=== PATIENT | female | born 1990 | race Caucasian/White ===

== ENCOUNTER 2019-06-01 17:35 | Emergency (ER) | payer OTHER, MEDICAID, SELFPAY ==
[2019-06-01 17:36] VITALS: BP 138/87; PULSE 101; RESP 18; TEMP 36.8; O2SAT 100; BMI 20.3
--- NOTE | 2019-06-01 17:47 | ED.DCSUM_ITS ---
- ER Visit Summary Date of Service: 06/01/19 Chief Complaint: Left knee pain History of Present Illness: The patient is a 29 F who complains of left knee pain. It started 4 days ago. She was working and was standing on her feet for more than 11 hours when the pain started. Denies any specific injury. The pain is on the lateral portion of her left knee. Is worse with walking. She saw orthopedic in [place] last year for torn meniscus which healed on its own. She cannot take certain pain medications due to being on Celebrex for her Crohn's disease. She went to an urgent care earlier today and had negative x-rays. They did not give her any assistive devices or pain medications there. She has a Orth appointment with an orthopedic surgeon with the [facility] in over a month Physical Examination: Vital signs reviewed. Left knee exam reveals tenderness on the lateral joint line. There is mild swelling. She has decreased range of motion secondary to pain. She does have pain with valgus and varus stress. There is a mild amount of swelling Test Results: None performed here today Emergency Department Course and Treatment: Reviewed the patient's note from the urgent care. They performed x-rays which were negative. I will give her analgesia here. I will give her a knee immobilizer and crutches. I will give her follow-up with orthopedics here. Treatment Plan: [] Disposition: Discharge Impression: Left knee pain This note was generated with [employer] dictation software. It may contain incorrect words, spelling, and punctuation that were not noted in review of the chart prior to signing ED Disposition - Plan for ED Patient: Referrals: Ruben Burciaga MD [Primary Care Provider] -
--- NOTE | 2019-06-01 17:50 | ED.DEP ---
ED Disposition - Plan for ED Patient: Disposition: Home or Assisted Living Instructions: KNEE PAIN, Uncertain Cause Prescriptions: Oxycodone [Oxyir] 5 mg PO Q6H PRN PRN 3 Days #10 tab PRN Reason: Pain Prescription Printed Referrals: Ruben Burciaga MD [Primary Care Provider] -
== END 2019-06-01 18:15 | disposition home or self-care (01) ==
LOC: ED 18:09
PROVIDERS: Emergency Provider Emergency Medicine; Family Provider Internal Medicine; PCP Internal Medicine
DX: M25.562 Pain in left knee (principal); K50.90 Crohn's disease, unspecified, without complications; Z79.899 Other long term (current) drug therapy
CPT/HCPCS: 99284

== ENCOUNTER 2019-10-05 18:35 | Emergency (ER) | payer OTHER, MEDICAID, SELFPAY ==
[2019-10-05 18:37] VITALS: BP 144/93; PULSE 108; RESP 18; TEMP 36.4; O2SAT 100; BMI 21.8
--- NOTE | 2019-10-05 18:56 | RAD_ITS ---
STUDY: X-RAY - THORACIC SPINE REASON FOR EXAM: Female, 29 years old. Back pain TECHNIQUE: 3 view(s) of the thoracic spine were obtained. COMPARISON: None. FINDINGS: Normal kyphosis of the thoracic spine. There is no substantial scoliosis. Normal thoracic vertebrae and endplates. Normal disc space heights. Right chest wall Mediport The soft tissue structures are unremarkable. RAD/Thoracic Spine 3 Views IMPRESSION: Normal x-ray examination of the thoracic spine. Electronically Signed: Benjamin Buchanan DO at 19:50 EST Tel , Service support ,
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
[2019-10-05 22:22] VITALS: BP 121/78; PULSE 69; RESP 16; O2SAT 99
== END 2019-10-05 22:22 | disposition home or self-care (01) ==
PROVIDERS: Emergency Provider Emergency Medicine; Family Provider Internal Medicine; PCP Internal Medicine
DX: S16.1XXA Strain of muscle, fascia and tendon at neck level, initial encounter (principal); S29.012A Strain of muscle and tendon of back wall of thorax, initial encounter; K50.90 Crohn's disease, unspecified, without complications; D68.0 Von Willebrand disease; Z79.899 Other long term (current) drug therapy; V43.52XA Car driver injured in collision with other type car in traffic accident, initial encounter; Y93.I9 Activity, other involving external motion; Y92.410 Unspecified street and highway as the place of occurrence of the external cause; Y99.8 Other external cause status
CPT/HCPCS: 72040; 72072; 99282

== ENCOUNTER → 2019-10-10 14:35 | Outpatient (CLI) | payer OTHER, MEDICAID, SELFPAY ==
[2019-10-05 18:37] VITALS: BMI 21.8
[2019-10-10] MEDS: 0.9% Normal Saline 1,000 ML 999 ML IV (14:55)
[2019-10-10 14:58] VITALS: BP 123/85; PULSE 121; RESP 16; TEMP 36.8; O2SAT 99; BMI 20.9
== END ==
PROVIDERS: Family Provider Internal Medicine; PCP Internal Medicine; Referring Provider Nurse Practitioner; Visit Provider Nurse Practitioner
DX: E86.0 Dehydration (principal)
CPT/HCPCS: 96360; J7030; A4216

== ENCOUNTER 2021-10-10 14:39 | Inpatient (IN) | payer OTHER, SELFPAY ==
[2021-10-10 14:39] VITALS: BP 141/87; PULSE 137; RESP 16; TEMP 36.4; O2SAT 97; BMI 25.4
--- NOTE | 2021-10-10 16:47 | CT_ITS ---
INDICATION: Abdominal pain -- IV PO Contrast EXAMINATION: CT Abdomen And Pelvis W/ Contrast Injection TECHNIQUE: Helically acquired images were obtained of the abdomen and pelvis after IV contrast. A radiation dose optimization technique was used for this scan. IV Contrast dosage and agent: Oral and amp; IV Gastrografin and amp; 100mL Isovue-300 Oral contrast: yes. COMPARISON: None. FINDINGS: Visualized lung bases: Unremarkable Liver: Unremarkable Gallbladder: Surgically absent. 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 Lymphadenopathy: None Peritoneum: No ascites. Bladder: Unremarkable Reproductive organs: Multilocular rim-enhancing cystic structure in the left adnexa measuring approximately 5.3 x 6 x 6.4 cm. There is mild surrounding fat stranding. Bones/Soft tissues: No suspicious osseous or soft tissue lesions CT/Abdomen/Pelvis WITH Contrast IMPRESSION: 6.4 cm likely tubo-ovarian abscess on the left. 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 Electronically Signed: Rishabh Bronson MD at 19:07 EST Tel , Service support ,
[2021-10-10] MEDS: HYDROmorphone 1 MG/ML Syringe IV ×3 (17:01→22:12)
[2021-10-10] MEDS: 0.9% Normal Saline 1,000 ML 1000 ML IV (17:01)
[2021-10-10] MEDS: Ondansetron 4 MG/2 ML Vial IV (17:01)
[2021-10-10 17:07] LABS: Absolute Lymphocyte Count 1.38 X10^3/uL (0.83-4.51); Absolute Neutrophil Count 10.7 X10^3/uL (2.0-7.7); Basophil# 0.06 X10^3/uL; Basophil% 0.5 % (0-1); Eosinophil# 0.04 X10^3/uL; Eosinophils% 0.3 % (0-5); Hematocrit 39.4 % (37-47); Hemoglobin 13.4 g/dL (12.0-15.0); Lymphocyte # 1.38 X10^3/ul (0.83-4.51); Lymphocyte % 10.4 % (19-41); Mean Corpuscular Hgb 30.9 pg (27.0-32.0); Mean Platelet Vol. 10.2 fl (6.2-12.0); Monocyte# 1.05 X10^3/uL; Monocyte% 7.9 % (0-10); NRBC Flagged by Analyzer 0 % (0-5); Neutrophil # 10.65 X10^3/uL (2.7-7.7); Neutrophil % 80.2 % (47-70); Platelet Count 195 K/mm3 (150-450); RBC Distribution Width CV 12.2 % (11.6-14.6); RBC Distribution Width SD 40.9 fl (35.1-43.9); Red Blood Count 4.33 M/mm3 (4.2-5.4); White Blood Count 13.3 K/mm3 (4.4-11.0)
[2021-10-10 17:27] LABS: Color, Urine Yellow (Yellow); Glucose, Dipstick Normal (Normal); Ketone-Dipstick Negative (Negative); Leukocyte Esterase-Dipstick 500 /ul (Negative); Mucous, Urine 0 SEEN /hpf (<or=2+); Nitrite-Dipstick Negative (Negative); Occult Blood-Urine 250 /ul (Negative); Protein-Dipstick 15 mg/dl (Negative); Specific Gravity, Urine 1.025 (1.002-1.030); Urine Bilirubin Dipstick Negative (Negative); Urine Clarity Sl. Cloudy (Clear); Urine Urobilinogen Normal (Normal)
[2021-10-10 17:34] LABS: Bacteria RARE /hpf (None Seen); Red Blood Cells-Urine 0-5 SEEN /hpf (0-5); Squamous Epithelial Cells - UA 0-5 SEEN /hpf (5-10); White Blood Cells 25-50 SEEN /hpf (0-5)
[2021-10-10 17:38] LABS: ALB/GLOB Ratio 0.9 RATIO (0.9-2.4); AST(SGOT) 19 U/L (15-37); Alanine Aminotransfer ALT/SGPT 22 U/L (13-56); Albumin, Serum 3.4 g/dL (3.2-5.0); Alkaline Phosphatase 65 U/L (45-117); Anion Gap 8 (5-15); BUN 9 mg/dL (7-18); BUN/Creat Ratio 15.6 RATIO (10-20); Calcium,Total 8.7 mg/dL (8.5-10.1); Chloride 106 mmol/L (98-107); Creatinine, Serum 0.58 mg/dL (0.55-1.02); EST Glomerular Filtration Rate 128 mL/min (>60); Est Glom Filt Rate - Afr Amer 155 mL/min (>60); Estimated Creatinine Clearance 130.36 ml/min; Globulin 3.9 g/dL (2.2-4.2); Glucose 106 mg/dL (74-106); Lipase 94 U/L (73-393); Potassium 3.5 mmol/L (3.5-5.1); Protein, Total 7.3 g/dL (6.4-8.2); Sodium Level 136 mmol/L (136-145)
[2021-10-10 17:45] VITALS: BP 120/82; PULSE 110; RESP 16; O2SAT 100
--- NOTE | 2021-10-10 19:30 | ED.VIS.GI ---
HPI HPI - GI History of Present Illness Chief Complaint: Abd Pain Informant: patient Abdominal Pain/Flank Pain Onset: Today Context: Gradual Onset Timing: Continuous Quality: Sharp Location: Diffuse and - (Mainly in the periumbilical area) Worsened by: - (Walking, sitting) Relieved by: Nothing Nausea/Vomiting/Emesis GI Symptom: Positive for Nausea; Negative for Vomiting Diarrhea/Melena/Hematochezia GI Symptom: Positive for - (Decreased ostomy output); Negative for Diarrhea, Melena and Hematochezia Associated Symptoms Associated Symptoms: Negative for Dysuria, Frequency and Hematuria Narrative Narrative: Patient presents with abdominal pain that began yesterday. Patient states it is gradually getting worse. Patient states it is diffuse but mostly periumbilical. Patient states it is worsened by walking and by sitting up. Patient admits to nausea but denies any vomiting. Patient also admits to some decreased output in her ostomy bag. Patient denies any urinary complaints. Patient denies any melena or hematochezia. PFSH PFS Medical History Crohn's disease Fistula Von Willebrand disease, type I Home Medications amitriptyline 50 mg PO QHS 10/05/19 [History Last Taken Unknown] vedolizumab 300 mg IV QMONTH 10/05/19 [History Last Taken Unknown] Allergy/AdvReac Type Severity Reaction Status Date / Time banana Allergy Anaphylaxis Verified 10/10/21 14:42 bee venom protein (honey bee) Allergy Anaphylaxis Verified 10/10/21 14:42 fentanyl Allergy Anaphylaxis Verified 10/10/21 14:42 infliximab [From Remicade] Allergy Anaphylaxis Verified 10/10/21 14:42 morphine Allergy Anaphylaxis Verified 10/10/21 14:42 latex AdvReac Rash Verified 10/10/21 14:42 Surgical History History of cholecystectomy History of ileostomy History of total colectomy Social History Smoking Status: Never smoker ROS ROS ED Constitutional Constitutional ED: Denies chills or fever(s) Eyes Eyes: Denies blurry vision or change in vision ENT ENT ED: Denies rhinorrhea or sore throat Cardiovascular Cardiovascular: Denies chest pain or palpitations Respiratory/Chest Respiratory/Chest: Denies cough or dyspnea Gastrointestinal Gastrointestinal: Reports abdominal pain and nausea; Denies vomiting Genitourinary Genitourinary ED: Denies dysuria or hematuria Musculoskeletal Musculoskeletal: Denies back pain or neck pain Integumentary Denies abscess or rash Neurologic Neurologic: Denies headache(s) or weakness Allergic/Immunologic Allergic/Immunologic ED: Denies mouth swelling or urticaria EXAM Physical Exam Const Vital Signs: 10/10/21 14:39 10/10/21 17:45 10/10/21 20:02 Temperature 97.5 F L Temperature Source Temporal Pulse Rate 137 H 110 H 86 Respiratory Rate 16 16 18 Blood Pressure 141/87 H 120/82 H Blood Pressure Mean 105 94 Pulse Ox 97 100 95 Oxygen Delivery Method Room Air Room Air Room Air Positive well nourished and well developed General Appearance ED: well developed HEENT Reports moist mucous membranes Neck supple and no JVD Resp normal respiratory effort and clear to auscultation bilaterally Cardio regular rate and regular rhythm GI non-distended Palpation: soft and tender LLQ, RLQ and periumbilical; Negative for guarding or rebound tenderness present Extremity full ROM Neuro CN's II-XII intact bilaterally, moves all extremities and no sensory deficits noted Sensorium / Orientation: alert, oriented to person, oriented to place and oriented to time Motor Exam: strength 5/5 throughout Psych mental status grossly normal MDM MDM MDM Narrative Medical decision making narrative: Patient was given IV fluids and Dilaudid and Zofran here. CBC shows a leukocytosis of 13.3. Comprehensive metabolic profile showed an elevated bilirubin of 2.10 but was otherwise within normal limits. Urinalysis shows leukocyte esterase of 500 with 25-[address] scan of the abdomen pelvis was obtained. There is a multilocular rim-enhancing cystic structure in the left adnexa measuring 5.3 x 6 x 6.4 cm. There is some mild surrounding fat stranding. This could be a tubo-ovarian abscess versus possible abscess in a fistula. Patient was started on Rocephin, doxycycline, and Flagyl. Patient was given a repeat dose of Dilaudid. Case was discussed with Dr. Celestin from [facility]. She recommended contacting general surgery. Case was discussed with Dr. Calderon from general surgery. She thinks that if this is related to her Crohn's disease that she would need to be transferred back to [facility] where her other Crohn's surgeries were performed. Patient is agreeable to be transferred to [facility]. Case was discussed with colorectal surgery, Dr. Grajeda. He accepted the patient to be transferred there. Patient understood and was agreeable with the plan. All questions were answered. Lab Data Attestation: I reviewed the patient's lab results. Labs: Laboratory Results - last 24 hr 10/10/21 10/10/21 10/10/21 15:30 16:35 16:35 WBC 13.3 H RBC 4.33 Hgb 13.4 Hct 39.4 MCV 91.0 MCH 30.9 MCHC 34.0 RDW Std Deviation 40.9 RDW Coeff of Jaycee 12.2 Plt Count 195 MPV 10.2 Immature Gran % (Auto) 0.700 Neut % (Auto) 80.2 H Lymph % (Auto) 10.4 L Tillman % (Auto) 7.9 Eos % (Auto) 0.3 Baso % (Auto) 0.5 Absolute Neuts (auto) 10.7 H Absolute Lymphs (auto) 1.38 Nucleated RBC % 0 Sodium 136 Potassium 3.5 Chloride 106 Carbon Dioxide 22.0 Anion Gap 8 BUN 9 Creatinine 0.58 Estim Creat Clear Calc 130.36 Est GFR (MDRD) Af Amer 155 Est GFR (MDRD) Non-Af 128 BUN/Creatinine Ratio 15.6 Glucose 106 Calcium 8.7 Total Bilirubin 2.10 H AST 19 ALT 22 Alkaline Phosphatase 65 Total Protein 7.3 Albumin 3.4 Globulin 3.9 Albumin/Globulin Ratio 0.9 Lipase 94 Urine Color Yellow Urine Clarity Sl. Cloudy Urine pH 5.0 Ur Specific [place] 1.025 Urine Protein 15 H Urine Glucose (UA) Normal Urine Ketones Negative Urine Occult Blood 250 H Urine Nitrite Negative Urine Bilirubin Negative Urine Urobilinogen Normal Ur Leukocyte Esterase 500 H Urine RBC 0-5 SEEN Urine WBC 25-50 SEEN Ur Squamous Epith Cells 0-5 SEEN Urine Bacteria RARE Urine Mucus 0 SEEN Radiography Diagnostic Testing: Clinical Impression(s) from Imaging Studies Abdomen/Pelvis CT 10/10/21 16:47 IMPRESSION: 6.4 cm likely tubo-ovarian abscess on the left. 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 Electronically Signed: Rishabh Bronson MD at 19:07 EST Tel , Service support , Discharge Plan Triage Chief Complaint: Abd Pain ED Provider: Donaldo Foley Dx/Rx/DC Orders Clinical Impression: Abscess of female pelvis, Crohn's disease, Enterovaginal fistula Prescriptions: No Action amitriptyline 25 MG tablet 50 mg PO QHS RF: 0 vedolizumab 300 MG recon soln 300 mg IV QMONTH RF: 0 Primary Care Provider: Ruben Burciaga Referrals: Ruben Burciaga MD [Primary Care Provider] - Disposition Disposition: Acute Care Hospital Discharge Location: [facility]
[2021-10-10] MEDS: Ceftriaxone 1 GM/50 ML BAG IV (20:01)
[2021-10-10 20:02] VITALS: PULSE 86; RESP 18; O2SAT 95
[2021-10-10] MEDS: metroNIDAZOLE 500 MG/100 ML BAG 100 MG IV (20:38)
[2021-10-10 22:16] VITALS: BP 125/77; PULSE 88; RESP 18; O2SAT 99
[2021-10-11] VITALS (11 sets, daily range): BP systolic 99–127; BP diastolic 61–84; PULSE 86–110; RESP 15–18; TEMP 36.6–36.8; O2SAT 96–100; BMI 26.1
[2021-10-11] MEDS: Amitriptyline 25 MG Tablet 50 MG PO ×2 (00:26→21:39)
[2021-10-11] MEDS: Ondansetron 4 MG/2 ML Vial IV ×2 (01:00→12:08)
[2021-10-11] MEDS: HYDROmorphone 1 MG/ML Syringe IV ×5 (01:01→21:46)
--- NOTE | 2021-10-11 02:06 | ED.RN ---
CALLED [facility] AND THEY DO NOT HAVE A ETA ON A BED
[2021-10-11] MEDS: metroNIDAZOLE 500 MG/100 ML BAG 100 MG IV (02:29)
--- NOTE | 2021-10-11 07:45 | ED.RN ---
[facility], MOST LIKELY WILL NOT BE TODAY
[2021-10-11] MEDS: 0.9% Normal Saline 1,000 ML 1000 ML IV (09:09)
--- NOTE | 2021-10-11 10:20 | HP.PCM.HOS_ITS ---
HPI - General General Date of Admission: 10/11/21 Date of Service: 10/11/21 Chief Complaint: Abdominal pain HPI Narrative LAXMI SORIA, is a 31-year-old female with past medical history segment for Crohn's disease who presents with abdominal pain. Patient states she has had abdominal pain intermittently for the past 3 months. 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 She did not develop any 1 in February which has been followed closely by [facility]. She was scheduled to undergo MRI imaging on 11/06/2021 at the main campus of [facility] however she developed intense pain which resulted in patient being brought to the ED. In the emergency department CT of the abdomen and pelvis obtained demonstrated a 7.4 cm likely tubal ovarian abscess on the left and evidence of colectomy and r ight lower quadrant ileostomy. Call was placed to the [facility] to have patient transferred however bed was not available. General surgeon Dr. Calderon was contacted who requested for patient to be admitted to the medical service. Prior to Dr. Lutz being contacted [facility] has been contacted?Dr. Celestin who felt the findings on the CAT scan were not consistent with tubo-ovarian abscess [facility] Medical History Crohn's disease Fistula Von Willebrand disease, type I no medical history Home Medications amitriptyline 50 mg PO QHS 10/05/19 [History Last Taken Unknown] vedolizumab 300 mg IV QMONTH 10/05/19 [History Last Taken Unknown] Allergy/AdvReac Type Severity Reaction Status Date / Time banana Allergy Anaphylaxis Verified 10/10/21 14:42 bee venom protein (honey bee) Allergy Anaphylaxis Verified 10/10/21 14:42 fentanyl Allergy Anaphylaxis Verified 10/10/21 14:42 infliximab [From Remicade] Allergy Anaphylaxis Verified 10/10/21 14:42 morphine Allergy Anaphylaxis Verified 10/10/21 14:42 latex AdvReac Rash Verified 10/10/21 14:42 Family History Mother No problems noted. Surgical History History of cholecystectomy History of ileostomy History of total colectomy Social History Smoking Status: Never smoker ROS ROS Narrative GENERAL: denies fever, chills, HEENT: denies headache, sinus congestion, or drainage, dysphagia RESPIRATORY: denies cough, sputum production, shortness of breath, CARDIAC: denies chest pain, palpitations, orthopnea, PND GASTROINTESTINAL: abdominal pain, nausea, GENITOURINARY: denies dysuria, urgency, frequency, EXTREMITY: denies swelling MUSCULOSKELETAL: denies current joint pain or tenderness NEUROLOGIC: denies focal numbness, weakness, tingling HEMATOLOGIC: denies easy bruising and/or hemorrhage INTEGUMENT: denies rashes PSYCHIATRIC: denies suicidal or homicidal ideation Vital Signs Vital Signs Vital Signs: 10/10/21 14:39 10/10/21 17:45 10/10/21 20:02 Temperature 97.5 F L Temperature Source Temporal Pulse Rate 137 H 110 H 86 Respiratory Rate 16 16 18 Blood Pressure 141/87 H 120/82 H Blood Pressure Mean 105 94 Pulse Ox 97 100 95 Oxygen Delivery Method Room Air Room Air Room Air 10/10/21 22:16 10/11/21 01:06 10/11/21 03:06 Temperature Temperature Source Pulse Rate 88 103 H Respiratory Rate 18 18 18 Blood Pressure 125/77 H 107/69 Blood Pressure Mean 93 81 Pulse Ox 99 96 Oxygen Delivery Method Room Air Room Air 10/11/21 05:13 10/11/21 07:28 10/11/21 08:49 Temperature 98.3 F Temperature Source Oral Pulse Rate 88 105 H Respiratory Rate 18 16 16 Blood Pressure 99/61 Blood Pressure Mean 73 Pulse Ox 99 99 Oxygen Delivery Method Room Air Room Air Weight Weight: 71.713 kg Body Mass Index (BMI) 25.4 Results Lab / Micro Data Result Diagrams: 10/10/21 16:35 10/10/21 16:35 Labs: Laboratory Results - last 24 hr 10/10/21 15:30: Urine Color Yellow, Urine Clarity Sl. Cloudy, Urine pH 5.0, Ur Specific [place] 1.025, Urine Protein 15 H, Urine Glucose (UA) Normal, Urine Ketones Negative, Urine Occult Blood 250 H, Urine Nitrite Negative, Urine Bilirubin Negative, Urine Urobilinogen Normal, Ur Leukocyte Esterase 500 H, Urine RBC 0-5 SEEN, Urine WBC 25-50 SEEN, Ur Squamous Epith Cells 0-5 SEEN, Urine Bacteria RARE, Urine Mucus 0 SEEN 10/10/21 16:35: WBC 13.3 H, RBC 4.33, Hgb 13.4, Hct 39.4, MCV 91.0, MCH 30.9, MCHC 34.0, RDW Std Deviation 40.9, RDW Coeff of Jaycee 12.2, Plt Count 195, MPV 10.2, Immature Gran % (Auto) 0.700, Neut % (Auto) 80.2 H, Lymph % (Auto) 10.4 L, Cecil % (Auto) 7.9, Eos % (Auto) 0.3, Baso % (Auto) 0.5, Absolute Neuts (auto) 10.7 H, Absolute Lymphs (auto) 1.38, Nucleated RBC % 0 10/10/21 16:35: Sodium 136, Potassium 3.5, Chloride 106, Carbon Dioxide 22.0, Anion Gap 8, BUN 9, Creatinine 0.58, Estim Creat Clear Calc 130.36, Est GFR (MDRD) Af Amer 155, Est GFR (MDRD) Non-Af 128, BUN/Creatinine Ratio 15.6, Glucose 106, Calcium 8.7, Total Bilirubin 2.10 H, AST 19, ALT 22, Alkaline Phosphatase 65, Total Protein 7.3, Albumin 3.4, Globulin 3.9, Albumin/Globulin Ratio 0.9, Lipase 94 Radiology Impression Abdomen/Pelvis CT 10/10/21 16:47 IMPRESSION: 6.4 cm likely tubo-ovarian abscess on the left. 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 Electronically Signed: Rishabh Bronson MD at 19:07 EST Tel , Service support , Assessment & Plan Assessment/Plan (1) Abscess of female pelvis: (2) Crohn's disease: (3) Enterovaginal fistula: PLAN: Patient is a 31-year-old lady with history of Crohn's disease presented with lower abdominal 1. Pelvic abscess ?In a patient with Crohn's disease. Patient has been accepted for transfer to [facility] however bed currently not available. Patient has therefore been admitted to regular nursing floor started on broad-spectrum antibiotic therapy with Invanz with consultation placed to both general surgery as well as [facility] 2. Crohn's disease ?With previous colectomy and right lower quadrant ileostomy. Patient currently has complications including rectal vagina fistula. Patient is currently on monthly vedolizumab 3. Rectovaginal fistula ?Complication of patient's Crohn's disease currently being followed by surgery at [facility] 4. Status post colectomy and subsequent ileostomy ?Consult placed to osteotomy nurse for care 5. DVT prophylaxis ?Lovenox Charges/Coding Visit Charges Inpatient E&M: [id number] [facility] Hosp L3
--- NOTE | 2021-10-11 11:08 | PCS.PANDOC ---
PANDEMIC DOCUMENTATION INITIATED: Date: 06/24/2021 Time: 190
[2021-10-11] MEDS: oxyCODONE 5 MG Tablet PO ×2 (11:53→18:34)
[2021-10-11] MEDS: Acetaminophen 325 MG Tablet 650 MG PO ×2 (11:53→18:33)
--- NOTE | 2021-10-11 13:03 | PCM.CONS.GEN ---
Assessment & Plan Assessment/Plan (1) Abscess of female pelvis: PLAN: Patient is low risk for a TOA. She has been on antibiotics so cervical cx's not collected. Given her medical history this is most likely GI related. I do not think there is any benefit to a pelvic ultrasound at this time. Agree with general surgery consultation, IV antibiotics, and transfer to [facility] where her surgeon is located. I will send a message to her surgeon. Will sign off at this time as I think it is unlikely that this is ob gyn physician assistant in origin. Please call with any questions or concerns: [phone]. (2) Crohn's disease: (3) Enterovaginal fistula: HPI Consult Data Date of Consult: 10/11/21 HPI Narrative HPI Narrative: LAXMI OSRIA, is a 31 F who is currently admitted with a pelvic abscess. Known history of Crohn's colitis with multiple prior bowel and abdominal surgeries. She reports she started having abdominal pain about 2 days ago, which severely worsened yesterday. The pain is what prompted her to present to the ER. She has also had nausea. No fevers or chills. No vomiting. She notes a brown-colored and mucus type vaginal drainage that is consistent with the type of discharge/drainage she had with her fistula in the past. She is currently sexually active with one male partner. Monogamous and stable relationship. No history of sexually transmitted infections. She states they use condoms consistently and she has a Nexplanon in place. She denies any concern for any STDs. [facility] Medical History Crohn's disease Fistula Von Willebrand disease, type I Home Medications amitriptyline 50 mg PO QHS 10/05/19 [History Last Taken Unknown] vedolizumab 300 mg IV QMONTH 10/05/19 [History Last Taken Unknown] Allergy/AdvReac Type Severity Reaction Status Date / Time banana Allergy Anaphylaxis Verified 10/10/21 14:42 bee venom protein (honey bee) Allergy Anaphylaxis Verified 10/10/21 14:42 fentanyl Allergy Anaphylaxis Verified 10/10/21 14:42 infliximab [From Remicade] Allergy Anaphylaxis Verified 10/10/21 14:42 morphine Allergy Anaphylaxis Verified 10/10/21 14:42 latex AdvReac Rash Verified 10/10/21 14:42 Family History (Updated 10/11/21 @ 10:[address] Liam Adhikari MD) Mother No problems noted. Surgical History History of cholecystectomy History of ileostomy History of total colectomy Social History Smoking Status: Never smoker Lab / Micro Data Result Diagrams: 10/10/21 16:35 10/10/21 16:35 Labs: Laboratory Results - last 24 hr 10/10/21 15:30: Urine Color Yellow, Urine Clarity Sl. Cloudy, Urine pH 5.0, Ur Specific [place] 1.025, Urine Protein 15 H, Urine Glucose (UA) Normal, Urine Ketones Negative, Urine Occult Blood 250 H, Urine Nitrite Negative, Urine Bilirubin Negative, Urine Urobilinogen Normal, Ur Leukocyte Esterase 500 H, Urine RBC 0-5 SEEN, Urine WBC 25-50 SEEN, Ur Squamous Epith Cells 0-5 SEEN, Urine Bacteria RARE, Urine Mucus 0 SEEN 10/10/21 16:35: WBC 13.3 H, RBC 4.33, Hgb 13.4, Hct 39.4, MCV 91.0, MCH 30.9, MCHC 34.0, RDW Std Deviation 40.9, RDW Coeff of Jaycee 12.2, Plt Count 195, MPV 10.2, Immature Gran % (Auto) 0.700, Neut % (Auto) 80.2 H, Lymph % (Auto) 10.4 L, [place] % (Auto) 7.9, Eos % (Auto) 0.3, Baso % (Auto) 0.5, Absolute Neuts (auto) 10.7 H, Absolute Lymphs (auto) 1.38, Nucleated RBC % 0 10/10/21 16:35: Sodium 136, Potassium 3.5, Chloride 106, Carbon Dioxide 22.0, Anion Gap 8, BUN 9, Creatinine 0.58, Estim Creat Clear Calc 130.36, Est GFR (MDRD) Af Amer 155, Est GFR (MDRD) Non-Af 128, BUN/Creatinine Ratio 15.6, Glucose 106, Calcium 8.7, Total Bilirubin 2.10 H, AST 19, ALT 22, Alkaline Phosphatase 65, Total Protein 7.3, Albumin 3.4, Globulin 3.9, Albumin/Globulin Ratio 0.9, Lipase 94 Radiology Impression Abdomen/Pelvis CT 10/10/21 16:47 IMPRESSION: 6.4 cm likely tubo-ovarian abscess on the left. 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 Electronically Signed: Rishabh Bronson MD at 19:07 EST Tel , Service support ,
--- NOTE | 2021-10-11 13:39 | WOUNDNOTE ---
Was asked to see patient d/t having an ileostomy. patient states she had an ileostomy at age 8 d/t Crohn's that was able to be reversed and then had another surgery approx 15 yrs ago for her current ileostomy. Pt states she changes the appliances approx every 3-4 days. states does not have any supplies with her. Supplies taken to room for patient. states she plans to change the appliance after she showers later today. pt very appreciative and denies further needs at this time. Pt aware to call if needs arise.
[2021-10-11] MEDS: 0.9% Saline Lock 10 ML Syringe IV ×2 (14:02→21:46)
--- NOTE | 2021-10-11 17:12 | EX.PCM.CON.S ---
Assessment & Plan Assessment/Plan (1) Abnormal CT scan: PLAN: I have reviewed the CT scan with Dr. Calix as patient was initially presented as having a pelvic abscess. Given this, the best treatment moving forward would be to have a CT guided percutaneous placement of abscess drain. However, Dr. Calix does not believe that this is an abscess and is more concerned about the possibility of this being a loculated/cystic ovarian lesion and he does not want to percutaneous drain this lesion for concern of spreading of its contents. I have discussed the above with the patient. There is no surgical options that I can offer this patient. She is awaiting transfer to main [facility] (awaiting for bed availability) Agree with IV antibiotics. I will start patient on clear liquid diet, given patient is awaiting transfer. HPI Consult Data Date of Consult: 10/11/21 HPI Narrative HPI Narrative: Asked by Dr. Liam Adhikari to evaluate the following patient in consultation. LAXMI SORIA, is a 31 F who presents with complicated Crohn's disease. She is s/p total colectomy and also proctectomy, perineal resection for rectovaginal fistula. She has 32 cm of small intestine remaining. She has an ileostomy of the right side of the abdomen. She is presently on monthly IV treatment of Entivio. She describes the pain as mid to lower abdomen and pelvic pain. It is stabbing and constant. She does feel hungry at present. Denies fevers. She has nausea, but denies emesis. She noted gas in bag yesterday, but not today. She has noted vaginal discharge - brownish, mucus, sticky. She last ate yesterday morning. She denies pneumaturia, but has noted blood clots from urination. She denies dysuria. She has noted weight gain to about 170# of unknown etiology, normally has weighed about 120# and is concerned for thyroid problems. She has also had hair loss. [facility] Medical History Abnormal CT scan Crohn's disease Fistula Von Willebrand disease, type I Medical History no medical history Home Medications amitriptyline 50 mg PO QHS 10/05/19 [History Last Taken Unknown] vedolizumab 300 mg IV QMONTH 10/05/19 [History Last Taken Unknown] Allergy/AdvReac Type Severity Reaction Status Date / Time banana Allergy Anaphylaxis Verified 10/10/21 14:42 bee venom protein (honey bee) Allergy Anaphylaxis Verified 10/10/21 14:42 fentanyl Allergy Anaphylaxis Verified 10/10/21 14:42 infliximab [From Remicade] Allergy Anaphylaxis Verified 10/10/21 14:42 morphine Allergy Anaphylaxis Verified 10/10/21 14:42 latex AdvReac Rash Verified 10/10/21 14:42 Family History Mother No problems noted. Surgical History History of cholecystectomy History of ileostomy History of total colectomy Social History Smoking Status: Never smoker ROS ROS Narrative As per HPI, otherwise no additional complaints Physical Exam Const alert and oriented x3 Neck supple Resp normal respiratory effort Cardio Rate: regular rate GI GI Narrative: Abdomen is soft and benign, patient has periumbilical and lower abdominal tenderness to palpation but no peritoneal signs healed midline abdominal incision ileostomy on right side of abdomen with pink mucosa, fecal material noted in bag Inspection: abdominal distention Extremity normal to inspection Neuro Neuro Narrative: non focal Psych affect normal Lab / Micro Data Result Diagrams: 10/10/21 16:35 10/10/21 16:35 Labs: Laboratory Results - last 24 hr 10/10/21 15:30: Urine Color Yellow, Urine Clarity Sl. Cloudy, Urine pH 5.0, Ur Specific [place] 1.025, Urine Protein 15 H, Urine Glucose (UA) Normal, Urine Ketones Negative, Urine Occult Blood 250 H, Urine Nitrite Negative, Urine Bilirubin Negative, Urine Urobilinogen Normal, Ur Leukocyte Esterase 500 H, Urine RBC 0-5 SEEN, Urine WBC 25-50 SEEN, Ur Squamous Epith Cells 0-5 SEEN, Urine Bacteria RARE, Urine Mucus 0 SEEN 10/10/21 16:35: Sodium 136, Potassium 3.5, Chloride 106, Carbon Dioxide 22.0, Anion Gap 8, BUN 9, Creatinine 0.58, Estim Creat Clear Calc 130.36, Est GFR (MDRD) Af Amer 155, Est GFR (MDRD) Non-Af 128, BUN/Creatinine Ratio 15.6, Glucose 106, Calcium 8.7, Total Bilirubin 2.10 H, AST 19, ALT 22, Alkaline Phosphatase 65, Total Protein 7.3, Albumin 3.4, Globulin 3.9, Albumin/Globulin Ratio 0.9, Lipase 94 Radiology Impression Abdomen/Pelvis CT 10/10/21 16:47 IMPRESSION: 6.4 cm likely tubo-ovarian abscess on the left. 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 Electronically Signed: Rishabh Bronson MD at 19:07 EST Tel , Service support ,
[2021-10-11] MEDS: MELATONIN 3 MG TABLET PO (22:27)
[2021-10-12 02:00] VITALS: O2SAT 98
[2021-10-12 03:34] VITALS: BP 100/59; PULSE 90; RESP 15; TEMP 36.9; O2SAT 98
[2021-10-12] MEDS: HYDROmorphone 1 MG/ML Syringe IV ×3 (05:42→20:55)
[2021-10-12 07:17] LABS: Absolute Lymphocyte Count 1.12 X10^3/uL (0.83-4.51); Absolute Neutrophil Count 3.6 X10^3/uL (2.0-7.7); Basophil# 0.03 X10^3/uL; Basophil% 0.6 % (0-1); Eosinophil# 0.12 X10^3/uL; Eosinophils% 2.2 % (0-5); Hemoglobin 12.1 g/dL (12.0-15.0); Lymphocyte # 1.12 X10^3/ul (0.83-4.51); Lymphocyte % 20.6 % (19-41); Mean Corp Hgb Conc 32.7 g/dL (32-36); Mean Corpuscular Hgb 30.4 pg (27.0-32.0); Mean Platelet Vol. 10.4 fl (6.2-12.0); Monocyte# 0.57 X10^3/uL; Monocyte% 10.5 % (0-10); NRBC Flagged by Analyzer 0 % (0-5); Neutrophil # 3.58 X10^3/uL (2.7-7.7); Neutrophil % 65.7 % (47-70); Platelet Count 182 K/mm3 (150-450); RBC Distribution Width CV 12.1 % (11.6-14.6); RBC Distribution Width SD 41.9 fl (35.1-43.9); Red Blood Count 3.98 M/mm3 (4.2-5.4); White Blood Count 5.4 K/mm3 (4.4-11.0)
[2021-10-12 07:37] LABS: Anion Gap 6 (5-15); BUN 1 mg/dL (7-18); BUN/Creat Ratio 2.2 RATIO (10-20); Calcium,Total 8.5 mg/dL (8.5-10.1); Chloride 111 mmol/L (98-107); Creatinine, Serum 0.45 mg/dL (0.55-1.02); EST Glomerular Filtration Rate 170 mL/min (>60); Est Glom Filt Rate - Afr Amer 206 mL/min (>60); Estimated Creatinine Clearance 168.02 ml/min; Glucose 95 mg/dL (74-106); Magnesium 2.3 mg/dL (1.6-2.6); Potassium 3.8 mmol/L (3.5-5.1); Sodium Level 140 mmol/L (136-145)
--- NOTE | 2021-10-12 07:55 | PN.HOSP_ITS ---
Subjective Subjective Patient still complains of intermittent abdominal pain. Still waiting for bed prior to transfer to [facility]. Patient was seen in consultation by both ACCOUNT REVIEW SPECIALIST and Gen Surgery Objective Data Objective Data Vital Signs: Vital Signs Temp Pulse Resp BP Pulse Ox 98.4 F 90 15 100/59 L 98 10/12/21 03:34 10/12/21 03:34 10/12/21 03:34 10/12/21 03:34 10/12/21 03:34 Oxygen Delivery Method Room Air Weight: 73.4 kg Body Mass Index (BMI) 26.1 Intake & Output: Intake and Output for Last 24 Hours 10/10/21 10/11/21 10/12/21 23:59 23:59 23:59 Intake Total 1410 / 1410 2235.0 / 2235.0 1120 / 1120 Balance 1410 / 1410 2235.0 / 2235.0 1120 / 1120 Lab / Micro Data Result Diagrams: 10/12/21 05:28 10/12/21 05:28 Labs: Laboratory Results - last 24 hr 10/12/21 05:28: WBC 5.4, RBC 3.98 L, Hgb 12.1, Hct 37.0, MCV 93.0, MCH 30.4, MCHC 32.7, RDW Std Deviation 41.9, RDW Coeff of Jaycee 12.1, Plt Count 182, MPV 10.4, Immature Gran % (Auto) 0.400, Neut % (Auto) 65.7, Lymph % (Auto) 20.6, [place] % (Auto) 10.5 H, Eos % (Auto) 2.2, Baso % (Auto) 0.6, Absolute Neuts (auto) 3.6, Absolute Lymphs (auto) 1.12, Nucleated RBC % 0 10/12/21 05:28: Sodium 140, Potassium 3.8, Chloride 111 H, Carbon Dioxide 23.0, Anion Gap 6, BUN 1 L, Creatinine 0.45 L, Estim Creat Clear Calc 168.02, Est GFR (MDRD) Af Amer 206, Est GFR (MDRD) Non-Af 170, BUN/Creatinine Ratio 2.2 L, Glucose 95, Calcium 8.5, Phosphorus 2.0 L, Magnesium 2.3 Physical Exam Narrative GENERAL: cooperative HEENT: Atraumatic; EYES; Anicteric, Normal Conjunctiva NECK; supple, normal thyroid, RESPIRATORY: Diminished to auscultation CARDIOVASCULAR: Regular S1 S2, GI: soft, normoactive bowel sounds, : No Renal angle tenderness; EXTREMITIES: No edema, no clubbing, MUSCULOSKELETAL: no muscle waisting NEURO: Awake; no lateralizing signs. SKIN: No Rash PSYCH; Flat affect Assessment & Plan Assessment/Plan (1) Abscess of female pelvis: (2) Crohn's disease: (3) Enterovaginal fistula: PLAN: Patient is a 31-year-old lady with history of Crohn's disease presented with lower abdominal 1. Pelvic abscess ?In a patient with Crohn's disease. Patient has been accepted for transfer to [facility] however bed currently not available. Patient has therefore been admitted to regular nursing floor started on broad-spectrum antibiotic therapy with Invanz with consultation placed to both general surgery as well as ACCOUNT REVIEW SPECIALIST - Patient still complains of intermittent abdominal pain. Still waiting for bed prior to transfer to [facility]. Patient was seen in consultation by both ACCOUNT REVIEW SPECIALIST and Gen Surgery 2. Crohn's disease ?With previous colectomy and right lower quadrant ileostomy. Patient currently has complications including rectal vagina fistula. Patient is currently on monthly vedolizumab 3. Rectovaginal fistula ?Complication of patient's Crohn's disease currently being followed by surgery at [facility] 4. Status post colectomy and subsequent ileostomy ?Consult placed to osteotomy nurse for care 5. DVT prophylaxis ?[employer]assix Charges/Coding Visit Charges Inpatient E&M: 98633 Subs Hosp L2
[2021-10-12] MEDS: Enoxaparin 40 MG/0.4 ML Syringe SC (08:28)
[2021-10-12] MEDS: oxyCODONE 5 MG Tablet PO ×3 (08:32→17:59)
[2021-10-12 08:35] VITALS: BP 109/66; PULSE 97; RESP 18; TEMP 36.7; O2SAT 98
[2021-10-12 10:41] VITALS: O2SAT 96
[2021-10-12 14:30] VITALS: BP 120/72; PULSE 89; RESP 18; TEMP 36.6; O2SAT 100
--- NOTE | 2021-10-12 15:34 | PCM.PN.SRG ---
Subjective Subjective patient with intermittent lower abdominal pain, not as severe as initial presentation has been afebrile ostomy output - patient notes decreased gas but does not feel distended/obstructed Objective Data Objective Data Vital Signs: Vital Signs Temp Pulse Resp BP Pulse Ox 97.9 F 89 18 120/72 100 10/12/21 14:30 10/12/21 14:30 10/12/21 14:30 10/12/21 14:30 10/12/21 14:30 Oxygen Delivery Method Room Air Weight: 73.4 kg Body Mass Index (BMI) 26.1 Intake & Output: Intake and Output for Last 24 Hours 10/10/21 10/11/21 10/12/21 23:59 23:59 23:59 Intake Total 1410 / 1410 2235.0 / 2235.0 3240 / 3240 Balance 1410 / 1410 2235.0 / 2235.0 3240 / 3240 Lab / Micro Data Result Diagrams: 10/12/21 05:28 10/12/21 05:28 Labs: Laboratory Results - last 24 hr 10/12/21 05:28: WBC 5.4, RBC 3.98 L, Hgb 12.1, Hct 37.0, MCV 93.0, MCH 30.4, MCHC 32.7, RDW Std Deviation 41.9, RDW Coeff of Jaycee 12.1, Plt Count 182, MPV 10.4, Immature Gran % (Auto) 0.400, Neut % (Auto) 65.7, Lymph % (Auto) 20.6, [place] % (Auto) 10.5 H, Eos % (Auto) 2.2, Baso % (Auto) 0.6, Absolute Neuts (auto) 3.6, Absolute Lymphs (auto) 1.12, Nucleated RBC % 0 10/12/21 05:28: Sodium 140, Potassium 3.8, Chloride 111 H, Carbon Dioxide 23.0, Anion Gap 6, BUN 1 L, Creatinine 0.45 L, Estim Creat Clear Calc 168.02, Est GFR (MDRD) Af Amer 206, Est GFR (MDRD) Non-Af 170, BUN/Creatinine Ratio 2.2 L, Glucose 95, Calcium 8.5, Phosphorus 2.0 L, Magnesium 2.3 Physical Exam Const alert and oriented x3 General Appearance: cooperative Neck supple Resp normal respiratory effort GI GI Narrative: abdomen is soft stoma is viable and with output - digitalized - no evidence of outlet obstruction Assessment & Plan Assessment/Plan (1) Abnormal CT scan: PLAN[facility]
[2021-10-12] MEDS: Acetaminophen 325 MG Tablet 650 MG PO (17:59)
[2021-10-12 20:30] VITALS: BP 110/74; PULSE 86; RESP 16; TEMP 36.6; O2SAT 98
[2021-10-12] MEDS: MELATONIN 3 MG TABLET PO (20:55)
[2021-10-12] MEDS: Amitriptyline 25 MG Tablet 50 MG PO (20:55)
[2021-10-12] MEDS: 0.9% Saline Lock 10 ML Syringe IV (20:56)
[2021-10-13] VITALS (7 sets, daily range): BP systolic 102–121; BP diastolic 55–79; PULSE 89–107; RESP 15–18; TEMP 36.5–36.8; O2SAT 96–100
[2021-10-13] MEDS: oxyCODONE 5 MG Tablet PO ×3 (01:53→21:08)
[2021-10-13] MEDS: HYDROmorphone 1 MG/ML Syringe IV ×3 (05:54→15:17)
[2021-10-13 06:42] LABS: Absolute Neutrophil Count 1.8 X10^3/uL (2.0-7.7); Basophil# 0.03 X10^3/uL; Basophil% 0.8 % (0-1); Eosinophil# 0.14 X10^3/uL; Eosinophils% 3.6 % (0-5); Hematocrit 37.1 % (37-47); Hemoglobin 12.5 g/dL (12.0-15.0); Lymphocyte % 38.9 % (19-41); Mean Corp Hgb Conc 33.7 g/dL (32-36); Mean Corpuscular Volume 92.1 fL (81-99); Mean Platelet Vol. 9.9 fl (6.2-12.0); Monocyte# 0.37 X10^3/uL; Monocyte% 9.6 % (0-10); NRBC Flagged by Analyzer 0 % (0-5); Neutrophil % 46.6 % (47-70); Platelet Count 223 K/mm3 (150-450); RBC Distribution Width CV 12.2 % (11.6-14.6); RBC Distribution Width SD 41.2 fl (35.1-43.9); Red Blood Count 4.03 M/mm3 (4.2-5.4); White Blood Count 3.9 K/mm3 (4.4-11.0)
[2021-10-13 07:14] LABS: Anion Gap 5 (5-15); BUN 1 mg/dL (7-18); Calcium,Total 8.8 mg/dL (8.5-10.1); Chloride 110 mmol/L (98-107); Creatinine, Serum 0.49 mg/dL (0.55-1.02); EST Glomerular Filtration Rate 155 mL/min (>60); Est Glom Filt Rate - Afr Amer 187 mL/min (>60); Glucose 103 mg/dL (74-106); Potassium 3.9 mmol/L (3.5-5.1); Sodium Level 139 mmol/L (136-145)
--- NOTE | 2021-10-13 07:36 | PCM.PN.HOSP ---
Subjective Subjective Patient seen still complains of intermittent lower abdominal pain. Still waiting for bed prior to transfer to [facility] Objective Data Objective Data Vital Signs: Vital Signs Temp Pulse Resp BP Pulse Ox 98 F 92 16 102/63 98 10/13/21 05:57 10/13/21 05:57 10/13/21 05:57 10/13/21 05:57 10/13/21 05:57 Oxygen Delivery Method Room Air Weight: 71.4 kg Body Mass Index (BMI) 26.1 Intake & Output: Intake and Output for Last 24 Hours 10/11/21 10/12/21 10/13/21 23:59 23:59 23:59 Intake Total 2235.0 / 2235.0 4510 / 4510 1360 / 1360 Balance 2235.0 / 2235.0 4510 / 4510 1360 / 1360 Lab / Micro Data Result Diagrams: 10/13/21 06:00 10/13/21 06:00 Labs: Laboratory Results - last 24 hr 10/12/21 05:28: Sodium 140, Potassium 3.8, Chloride 111 H, Carbon Dioxide 23.0, Anion Gap 6, BUN 1 L, Creatinine 0.45 L, Estim Creat Clear Calc 168.02, Est GFR (MDRD) Af Amer 206, Est GFR (MDRD) Non-Af 170, BUN/Creatinine Ratio 2.2 L, Glucose 95, Calcium 8.5, Phosphorus 2.0 L, Magnesium 2.3 10/13/21 06:00: WBC 3.9 L, RBC 4.03 L, Hgb 12.5, Hct 37.1, MCV 92.1, MCH 31.0, MCHC 33.7, RDW Std Deviation 41.2, RDW Coeff of Jaycee 12.2, Plt Count 223, MPV 9.9, Immature Gran % (Auto) 0.500, Neut % (Auto) 46.6 L, Lymph % (Auto) 38.9, [place] % (Auto) 9.6, Eos % (Auto) 3.6, Baso % (Auto) 0.8, Absolute Neuts (auto) 1.8 L, Absolute Lymphs (auto) 1.50, Nucleated RBC % 0 10/13/21 06:00: Sodium 139, Potassium 3.9, Chloride 110 H, Carbon Dioxide 24.0, Anion Gap 5, BUN 1 L, Creatinine 0.49 L, Estim Creat Clear Calc 154.30, Est GFR (MDRD) Af Amer 187, Est GFR (MDRD) Non-Af 155, BUN/Creatinine Ratio 2.0 L, Glucose 103, Calcium 8.8 Physical Exam Narrative GENERAL: cooperative HEENT: Atraumatic; EYES; Anicteric, Normal Conjunctiva NECK; supple, normal thyroid, RESPIRATORY: Diminished to auscultation CARDIOVASCULAR: Regular S1 S2, GI: soft, normoactive bowel sounds, : No Renal angle tenderness; EXTREMITIES: No edema, no clubbing, MUSCULOSKELETAL: no muscle waisting NEURO: Awake; no lateralizing signs. SKIN: No Rash PSYCH; Flat affect Assessment & Plan Assessment/Plan (1) Abscess of female pelvis: (2) Crohn's disease: (3) Enterovaginal fistula: PLAN: Patient is a 31-year-old lady with history of Crohn's disease presented with lower abdominal 1. Pelvic abscess ?In a patient with Crohn's disease. Patient has been accepted for transfer to [facility] however bed currently not available. Patient has therefore been admitted to regular nursing floor started on broad-spectrum antibiotic therapy with Invanz with consultation placed to both general surgery as well as ELECTRONIC HEALTH RECORDS SPECIALIST -10/13/2021. Awaiting bed prior to transfer to a tertiary care center 2. Crohn's disease ?With previous colectomy and right lower quadrant ileostomy. Patient currently has complications including rectal vagina fistula. Patient is currently on monthly vedolizumab 3. Rectovaginal fistula ?Complication of patient's Crohn's disease currently being followed by surgery at [facility] 4. Status post colectomy and subsequent ileostomy ?Consult placed to osteotomy nurse for care 5. DVT prophylaxis ?Lovenox Charges/Coding Visit Charges Inpatient E&M: 05717 Subs Hosp L2
[2021-10-13] MEDS: Enoxaparin 40 MG/0.4 ML Syringe SC (08:07)
--- NOTE | 2021-10-13 09:27 | DS.PCM_ITS ---
Providers Date of Admission: 10/11/21 Primary Care Physician: Dr. Ruben Burciaga MD Consultations 10/11/21 10:21 Consult: Onc/Wound/fruit buyer Routine Comment: 10/11/21 10:24 Consult: General Surgery Routine Consulting Provider: Donya Calderon Reason for Consult: Pelvic abscess EMERGENT Consult: No Notified: Yes Date Notified: 10/11/21 Time Notified: 10:25 Method of Notification: Verbal Consult: SERVICING REP Routine Consulting Provider: Esperanza Celestin Reason for Consult: pelvic surgery EMERGENT Consult: No Notified: Yes Date Notified: 10/11/21 Time Notified: 10:28 Method of Notification: Verbal/ Reason For Visit: PELVIC ABSCESS Diagnosis Discharge Diagnosis (1) Abscess of female pelvis: Status: Acute Code(s): N73.9 - Female pelvic inflammatory disease, unspecified (2) Crohn's disease: Status: Acute Code(s): K50.90 - Crohn's disease, unspecified, without complications (3) Enterovaginal fistula: Status: Acute Code(s): N82.4 - Other female intestinal-genital tract fistulae Medications at Discharge Home Medications amitriptyline 50 mg PO QHS 10/05/19 vedolizumab 300 mg IV QMONTH 10/05/19 ciprofloxacin HCl [Cipro] 500 mg PO BID #20 tab 10/13/21 hydromorphone [Dilaudid] 2 mg PO Q6H 5 Days #20 tab 10/13/21 metronidazole 500 mg PO Q8H #30 tab 10/13/21 ondansetron HCl [Zofran] 4 mg PO Q8H #7 tab 10/13/21 Hospital Course Summary of Care Provided Minutes Spent on Discharge: 35 Hospital Course: Patient is a 31-year-old lady with history of Crohn's disease presented with lower abdominal 1. Pelvic abscess ?In a patient with Crohn's disease. Patient has been accepted for transfer to [facility] however bed currently not available. Patient has therefore been admitted to regular nursing floor started on broad-spectrum antibiotic therapy with Invanz with consultation placed to both general surgery as well as SERVICING REP -10/13/2021. Awaiting bed prior to transfer to a tertiary care center ?Patient symptoms somewhat did improve Case was discussed with general surgery. Decision was made to discharge patient home with antibiotics pain medication as well as antinausea medication. Patient was instructed to call his same GEN at the [facility] on 10/14/2021 to have an appointment scheduled as soon as possible for evaluation 2. Crohn's disease ?With previous colectomy and right lower quadrant ileostomy. Patient currently has complications including rectal vagina fistula. Patient is currently on monthly vedolizumab 3. Rectovaginal fistula ?Complication of patient's Crohn's disease currently being followed by surgery at [facility] 4. Status post colectomy and subsequent ileostomy ?Consult placed to osteotomy nurse for care 5. DVT prophylaxis ?Lovenox Physical Exam Narrative GENERAL: cooperative HEENT: Atraumatic; EYES; Anicteric, Normal Conjunctiva NECK; supple, normal thyroid, RESPIRATORY: Diminished to auscultation CARDIOVASCULAR: Regular S1 S2, GI: soft, normoactive bowel sounds, : No Renal angle tenderness; EXTREMITIES: No edema, no clubbing, MUSCULOSKELETAL: no muscle waisting NEURO: Awake; no lateralizing signs. SKIN: No Rash Weight / BMI Weight Weight: 71.4 kg Body Mass Index (BMI) 26.1 ABG / Lab / Microbiology Data Result Diagrams: 10/13/21 06:00 10/13/21 06:00 Laboratory: Laboratory Results - last 24 hr 10/13/21 06:00: WBC 3.9 L, RBC 4.03 L, Hgb 12.5, Hct 37.1, MCV 92.1, MCH 31.0, MCHC 33.7, RDW Std Deviation 41.2, RDW Coeff of Jaycee 12.2, Plt Count 223, MPV 9.9, Immature Gran % (Auto) 0.500, Neut % (Auto) 46.6 L, Lymph % (Auto) 38.9, [place] % (Auto) 9.6, Eos % (Auto) 3.6, Baso % (Auto) 0.8, Absolute Neuts (auto) 1.8 L, Absolute Lymphs (auto) 1.50, Nucleated RBC % 0 10/13/21 06:00: Sodium 139, Potassium 3.9, Chloride 110 H, Carbon Dioxide 24.0, Anion Gap 5, BUN 1 L, Creatinine 0.49 L, Estim Creat Clear Calc 154.30, Est GFR (MDRD) Af Amer 187, Est GFR (MDRD) Non-Af 155, BUN/Creatinine Ratio 2.0 L, Glucose 103, Calcium 8.8 D/C Instructions Discharge Diet: No restrictions Discharge Activity: Return to Normal Activity Call your doctor if you observe: Fever of 101 or Higher, Shortness of breath, Fainting spells and Chest pain Meaningful Use Info Meaningful Use Diagnoses (Choose all that apply): None applicable Discharge Plan Admission Admit Date/Time: 10/11/21 10:20 Attending Provider: Liam Adhikari Primary Care Provider: Ruben Burciaga Consulting Providers: Donya Calderon ; Esperanza Celestin Discharge Orders/Prescriptions Prescriptions: New ciprofloxacin HCl [Cipro] 500 mg tablet 500 mg PO BID Qty: 20 RF: 0 metronidazole 500 mg tablet 500 mg PO Q8H Qty: 30 RF: 0 hydromorphone [Dilaudid] 2 mg tablet 2 mg PO Q6H 5 Days Qty: 20 RF: 0 ondansetron HCl [Zofran] 4 mg tablet 4 mg PO Q8H Qty: 7 RF: 0 Continued amitriptyline 25 MG tablet 50 mg PO QHS RF: 0 vedolizumab 300 MG recon soln 300 mg IV QMONTH RF: 0 Referrals / Follow Up: Ruben Burciaga MD [Primary Care Provider] - In 1 Week Disposition Disposition (needs filled in before D/C Order can be placed): Home, Self Care Charges/Coding Visit Charges Inpatient E&M: 79537 Disch Hosp
--- NOTE | 2021-10-13 09:28 | PCM.PN.SRG ---
Subjective Subjective Patient still with pain, especially with sitting She is tired of waiting for transfer tolerating liquids, does not appear septic has gas and fecal liquid in ostomy Objective Data Objective Data Vital Signs: Vital Signs Temp Pulse Resp BP Pulse Ox 98 F 92 16 102/63 98 10/13/21 05:57 10/13/21 05:57 10/13/21 05:57 10/13/21 05:57 10/13/21 05:57 Oxygen Delivery Method Room Air Weight: 71.4 kg Body Mass Index (BMI) 26.1 Intake & Output: Intake and Output for Last 24 Hours 10/11/21 10/12/21 10/13/21 23:59 23:59 23:59 Intake Total 2235.0 / 2235.0 4510 / 4510 1360 / 1360 Balance 2235.0 / 2235.0 4510 / 4510 1360 / 1360 Lab / Micro Data Result Diagrams: 10/13/21 06:00 10/13/21 06:00 Labs: Laboratory Results - last 24 hr 10/13/21 06:00: WBC 3.9 L, RBC 4.03 L, Hgb 12.5, Hct 37.1, MCV 92.1, MCH 31.0, MCHC 33.7, RDW Std Deviation 41.2, RDW Coeff of Jaycee 12.2, Plt Count 223, MPV 9.9, Immature Gran % (Auto) 0.500, Neut % (Auto) 46.6 L, Lymph % (Auto) 38.9, [place] % (Auto) 9.6, Eos % (Auto) 3.6, Baso % (Auto) 0.8, Absolute Neuts (auto) 1.8 L, Absolute Lymphs (auto) 1.50, Nucleated RBC % 0 10/13/21 06:00: Sodium 139, Potassium 3.9, Chloride 110 H, Carbon Dioxide 24.0, Anion Gap 5, BUN 1 L, Creatinine 0.49 L, Estim Creat Clear Calc 154.30, Est GFR (MDRD) Af Amer 187, Est GFR (MDRD) Non-Af 155, BUN/Creatinine Ratio 2.0 L, Glucose 103, Calcium 8.8 Physical Exam Const alert and oriented x3 HEENT normocephalic Resp normal respiratory effort Cardio regular rate GI GI Narrative: abdomen is soft, generalized tenderness in lower abdomen but no peritoneal signs noted ostomy pink and functioning, air and fecal liquid in bag Assessment & Plan Assessment/Plan (1) Abnormal CT scan: PLAN: Patient states that she can tolerate pain with po dilaudid, will discharge her on this and also antibiotics as per Dr. Adhikari also will discharge with zofran she will try to get to main [facility]
[2021-10-13] MEDS: MELATONIN 3 MG TABLET PO (21:08)
[2021-10-13] MEDS: Amitriptyline 25 MG Tablet 50 MG PO (21:08)
[2021-10-13] MEDS: Acetaminophen 325 MG Tablet 650 MG PO (21:08)
[2021-10-14 03:45] VITALS: BP 104/67; PULSE 95; RESP 15; TEMP 36.7; O2SAT 97
[2021-10-14] MEDS: Acetaminophen 325 MG Tablet 650 MG PO ×2 (04:05→16:27)
[2021-10-14] MEDS: oxyCODONE 5 MG Tablet PO ×5 (04:05→22:14)
[2021-10-14 06:23] LABS: Absolute Lymphocyte Count 1.63 X10^3/uL (0.83-4.51); Absolute Neutrophil Count 1.4 X10^3/uL (2.0-7.7); Basophil# 0.04 X10^3/uL; Basophil% 1.1 % (0-1); Eosinophil# 0.15 X10^3/uL; Eosinophils% 4.3 % (0-5); Hematocrit 41.6 % (37-47); Lymphocyte # 1.63 X10^3/ul (0.83-4.51); Lymphocyte % 46.3 % (19-41); Mean Corp Hgb Conc 33.7 g/dL (32-36); Mean Corpuscular Hgb 30.4 pg (27.0-32.0); Mean Corpuscular Volume 90.4 fL (81-99); Mean Platelet Vol. 9.9 fl (6.2-12.0); Monocyte% 8.5 % (0-10); NRBC Flagged by Analyzer 0 % (0-5); Neutrophil # 1.39 X10^3/uL (2.7-7.7); Neutrophil % 39.5 % (47-70); Platelet Count 236 K/mm3 (150-450); RBC Distribution Width CV 11.8 % (11.6-14.6); RBC Distribution Width SD 39.1 fl (35.1-43.9); White Blood Count 3.5 K/mm3 (4.4-11.0)
[2021-10-14 07:26] LABS: Anion Gap 7 (5-15); BUN 4 mg/dL (7-18); BUN/Creat Ratio 7.3 RATIO (10-20); Calcium,Total 9.5 mg/dL (8.5-10.1); Chloride 107 mmol/L (98-107); Creatinine, Serum 0.55 mg/dL (0.55-1.02); EST Glomerular Filtration Rate 136 mL/min (>60); Est Glom Filt Rate - Afr Amer 165 mL/min (>60); Estimated Creatinine Clearance 137.47 ml/min; Glucose 92 mg/dL (74-106); Potassium 3.7 mmol/L (3.5-5.1); Sodium Level 139 mmol/L (136-145)
[2021-10-14] MEDS: Enoxaparin 40 MG/0.4 ML Syringe SC (08:25)
--- NOTE | 2021-10-14 09:07 | PN.SURG_ITS ---
Subjective Subjective Casi notes no changes in her symptoms Objective Data Objective Data Vital Signs: Vital Signs Temp Pulse Resp BP Pulse Ox 98.1 F 95 15 104/67 97 10/14/21 03:45 10/14/21 03:45 10/14/21 03:45 10/14/21 03:45 10/14/21 03:45 Oxygen Delivery Method Room Air Weight: 71.3 kg Body Mass Index (BMI) 26.1 Intake & Output: Intake and Output for Last 24 Hours 10/12/21 10/13/21 10/14/21 23:59 23:59 23:59 Intake Total 4510 / 4510 2490.0 / 2590.0 460 / 460 Balance 4510 / 4510 2490.0 / 2590.0 460 / 460 Lab / Micro Data Result Diagrams: 10/14/21 05:20 10/14/21 05:20 Labs: Laboratory Results - last 24 hr 10/14/21 05:20: WBC 3.5 L, RBC 4.60, Hgb 14.0, Hct 41.6, MCV 90.4, MCH 30.4, MCHC 33.7, RDW Std Deviation 39.1, RDW Coeff of Jaycee 11.8, Plt Count 236, MPV 9.9, Immature Gran % (Auto) 0.300, Neut % (Auto) 39.5 L, Lymph % (Auto) 46.3 H, [place] % (Auto) 8.5, Eos % (Auto) 4.3, Baso % (Auto) 1.1 H, Absolute Neuts (auto) 1.4 L, Absolute Lymphs (auto) 1.63, Nucleated RBC % 0 10/14/21 05:20: Sodium 139, Potassium 3.7, Chloride 107, Carbon Dioxide 25.0, Anion Gap 7, BUN 4 L, Creatinine 0.55, Estim Creat Clear Calc 137.47, Est GFR (MDRD) Af Amer 165, Est GFR (MDRD) Non-Af 136, BUN/Creatinine Ratio 7.3 L, Glucose 92, Calcium 9.5 Physical Exam Const alert and oriented x3 General Appearance: cooperative Neck supple Resp normal respiratory effort GI GI Narrative: abdomen - benign appearing Assessment & Plan Assessment/Plan (1) Abnormal CT scan: PLAN: still awaiting transfer continue present therapy
--- NOTE | 2021-10-14 10:54 | PN.HOSP_ITS ---
Documented by User: FELIZ Zuñiga 10/14/21 11:00 Subjective Subjective Patient seen and examined. Patient lying in bed no distress noted. patient states that her pain has been well controlled with current pain medication regimen. Objective Data Objective Data Vital Signs: Vital Signs Temp Pulse Resp BP Pulse Ox 98.1 F 95 15 104/67 97 10/14/21 03:45 10/14/21 03:45 10/14/21 03:45 10/14/21 03:45 10/14/21 03:45 Oxygen Delivery Method Room Air Weight: 157 lb 3.033 oz Body Mass Index (BMI) 26.1 Intake & Output: Intake and Output for Last 24 Hours 10/12/21 10/13/21 10/14/21 23:59 23:59 23:59 Intake Total 4510 / 4510 2490.0 / 2590.0 580 / 580 Balance 4510 / 4510 2490.0 / 2590.0 580 / 580 Lab / Micro Data Result Diagrams: 10/14/21 05:20 10/14/21 05:20 Labs: Laboratory Results - last 24 hr 10/14/21 05:20: WBC 3.5 L, RBC 4.60, Hgb 14.0, Hct 41.6, MCV 90.4, MCH 30.4, MCHC 33.7, RDW Std Deviation 39.1, RDW Coeff of Jaycee 11.8, Plt Count 236, MPV 9.9, Immature Gran % (Auto) 0.300, Neut % (Auto) 39.5 L, Lymph % (Auto) 46.3 H, [place] % (Auto) 8.5, Eos % (Auto) 4.3, Baso % (Auto) 1.1 H, Absolute Neuts (auto) 1.4 L, Absolute Lymphs (auto) 1.63, Nucleated RBC % 0 10/14/21 05:20: Sodium 139, Potassium 3.7, Chloride 107, Carbon Dioxide 25.0, Anion Gap 7, BUN 4 L, Creatinine 0.55, Estim Creat Clear Calc 137.47, Est GFR (MDRD) Af Amer 165, Est GFR (MDRD) Non-Af 136, BUN/Creatinine Ratio 7.3 L, Glucose 92, Calcium 9.5 Physical Exam Const alert, oriented x3 and no apparent distress HEENT head/scalp atraumatic and moist oral mucous membranes Head and Scalp: normocephalic Eyes conjunctivae normal and no scleral icterus Neck full ROM and supple General: trachea midline Resp normal respiratory effort, normal air movement and clear to auscultation bilaterally Cardio regular rate, regular rhythm, S1 normal heart sound and S2 normal heart sound GI normal to inspection, nondistended, normoactive bowel sounds and soft to palpation Palpation: tender Extremity normal to inspection, full ROM and no clubbing, cyanosis or edema Peripheral Pulses: Yes pulses 2+ throughout Skin no rashes or lesions noted, no wounds and skin turgor normal Neuro oriented x3, moves all extremities, no focal motor deficits and no sensory defi cits noted Sensorium / Orientation: awake and alert Psych affect normal Assessment & Plan Assessment/Plan (1) Abscess of female pelvis: (2) Crohn's disease: (3) Enterovaginal fistula: PLAN: 1. Pelvic abscess -Awaiting bed at [facility] for transfer. Patient was going to discharge home last night with pain medications and follow-up outpatient however were notified that patient should have a bed sometime today and patient decided that she would like to wait for transfer. -Continue Invanz -General surgery following 2. 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 Status post colectomy and subsequent ileostomy -Ostomy nurse following DVT prophylaxis-subcu Lovenox This patient was seen by STEFFI ZuñigaC under the supervision of Dr. Mays. Documented by User: Dr. Katie Mays MD 10/14/21 16:24 Objective Data Lab / Micro Data Result Diagrams: 10/14/21 05:20 10/14/21 05:20 Charges/Coding Addendum Addendum: This patient was seen in conjunction with oJhnna Mendoza. I have independently interviewed and examined the patient and reviewed pertinent histor ical, laboratory, and other data. I have reviewed her note and concur with her documentation Patient was seen and examined. Pain is fairly controlled. Waiting on [facility] transfer line. Physical Exam: Gen: Comfortable, not pale, not jaundiced CVS:HS I +II, regular, no murmurs RESP: Diminished at lung bases GI: BS present and normal, soft, nontender, no palpable organs EXT:No edema ASSESSMENT: 1. Pelvic abscess 2. Crohn's disease, status post colectomy, with ileostomy Plan: Continue antibiotics, Follow-up with transfer line Visit Charges Inpatient E&M: 10001 Subs Hosp L2
[2021-10-14 11:43] VITALS: BP 114/78; PULSE 99; RESP 14; TEMP 36.8; O2SAT 100
[2021-10-14] MEDS: 0.9% Saline Lock 10 ML Syringe IV ×2 (11:46→14:03)
--- NOTE | 2021-10-14 13:41 | CASEMGMT ---
JOHAN MELO assessment: Face to Face with patient for initial transition planning/care coordination assessment. JOHAN MELO introduced self and role at [facility], pt voices understanding and consents to assessment. Pt is lying in bed in no distress on room air. Pt is A/Ox4 and answers all questions appropriately. Care providers, pharmacy, and demographics verified. Presentation: General abd pain and pain around ostomy, pt also states decreased stool-hx Crohns Admitting dx: Pelvic abscess PCP: Gualberto Specialists: Liz, colorectal surgeon; Sherlyn gastro; Veronica, heme Preferred Pharmacy: [facility] Insurance: [employer] Prescription Benefit: [employer] Living Will/HPOA: Pt states does not have LW/HPOA and declines AD info. LNOK: elvira Carmona other Living Arrangements: Pt states lives with daughter in apt and states no concerns at home. Pt is independent with ADL's. Transportation: Pt states drives self and states no transportation concerns. DME/HHC: Pt states no current DME or need for any DME. Pt states has had [facility] in the past but has not been to SNF. Pt states no concerns with going home at time of discharge. Pt works ortho assistant. Pt states does not smoke cigarettes or drink ETOH. Pt states no further concerns/needs. CM to follow for any further discharge planning/needs. Advised pt to ask for CM if any further questions/concerns/needs arise, voices understanding. Pt Goal: Home Plan: [place] JHOAN MELO
[2021-10-14 16:21] VITALS: BP 125/93; PULSE 100; RESP 14; TEMP 36.6; O2SAT 95
[2021-10-14] MEDS: Amitriptyline 25 MG Tablet 50 MG PO (21:50)
[2021-10-14 22:00] VITALS: O2SAT 97
[2021-10-14] MEDS: MELATONIN 3 MG TABLET PO (22:00)
[2021-10-14 22:15] VITALS: BP 121/94; PULSE 95; RESP 15; TEMP 36.9; O2SAT 95
[2021-10-15 04:00] VITALS: BP 125/80; PULSE 100; RESP 14; TEMP 36.9; O2SAT 97
[2021-10-15] MEDS: oxyCODONE 5 MG Tablet PO ×5 (04:28→22:33)
[2021-10-15 08:42] VITALS: BP 144/86; PULSE 128; RESP 28; TEMP 36.8; O2SAT 100
--- NOTE | 2021-10-15 08:44 | NURSING ---
pt crying. upset that she is still waiting for a bed at [facility]. reassurance given. asked if she had contacted her GI at [facility] in their office. She had call with them this am and they are going to see what they can do from their end.
[2021-10-15] MEDS: Enoxaparin 40 MG/0.4 ML Syringe SC (09:02)
[2021-10-15] MEDS: Ondansetron 4 MG/2 ML Vial IV (09:02)
[2021-10-15] MEDS: Acetaminophen 325 MG Tablet 650 MG PO ×2 (09:03→16:01)
[2021-10-15] MEDS: 0.9% Saline Lock 10 ML Syringe IV ×4 (09:05→22:37)
--- NOTE | 2021-10-15 10:30 | MRI_ITS ---
EXAM: MR PELVIS WITHOUT AND WITH INTRAVENOUS CONTRAST CLINICAL INDICATION: Ovarian abscess --, hx crohn''s-ileostomy, colectomy TECHNIQUE: Multiplanar and multisequence MR images of the pelvis without and with intravenous contrast. This report was created using [employer] report Joust technology. CONTRAST: IV 14ml Dotarem COMPARISON: 10/10/2021 FINDINGS: INTRAPERITONEAL SPACE: No ascites. BLADDER: Unremarkable. REPRODUCTIVE: Uterus is retroverted. No endometrial or myometrial masses. Dilated tubular structure of the left hemipelvis measures 5.6 x 4.6 x 5.0 cm with layering fluid fluid level and peripheral/septal enhancement following IV contrast. BONES/JOINTS: Unremarkable. No suspicious lytic or blastic abnormality. SOFT TISSUES: Unremarkable. No pelvic wall hernia. LYMPH NODES: Unremarkable. No enlarged lymph nodes. MRI/Pelvis W/WO Contrast IMPRESSION: Dilated tubular structure of the left hemipelvis measures 5.6 x 4.6 x 5.0 cm with layering fluid fluid level and peripheral/septal enhancement following IV contrast. Similar tubuloovarian abscess of the left adnexa. No additional fluid collection. Electronically Signed: Benji Bond MD (Brooks) at 8:22 EST , Service support ,
--- NOTE | 2021-10-15 11:34 | WOUNDNOTE ---
In to check with patient again if she had any ostomy needs. patient states she is still awaiting a bed at [facility]. states she actually got moved down the list and is now 15th to be transferred. patient states she plans on changing her appliance again today. there are supplies in the room for the patient. patient denies much pain and denies any further needs at this time.
--- NOTE | 2021-10-15 12:38 | PN.HOSP_ITS ---
Documented by User: FELIZ Zuñiga 10/15/21 12:40 Subjective Subjective Patient seen and examined. Patient lying in bed no distress noted. Patient states that she had a virtual visit with her personal finance instructor at [facility] this morning and informed him of current status and what was going on. Her GI doc said that he would be in touch with her colorectal surgeon. Patient expressing frustration at continued weight for transfer bed to [facility] Objective Data Objective Data Vital Signs: Vital Signs Temp Pulse Resp BP Pulse Ox 98.3 F 128 H 28 H 144/86 H 100 10/15/21 08:42 10/15/21 08:42 10/15/21 08:42 10/15/21 08:42 10/15/21 08:42 Oxygen Delivery Method Room Air Weight: 159 lb 2.78 oz Body Mass Index (BMI) 26.1 Intake & Output: Intake and Output for Last 24 Hours 10/13/21 10/14/21 10/15/21 23:59 23:59 23:59 Intake Total 2490.0 / 2590.0 1880 / 1880 240 / 240 Balance 2490.0 / 2590.0 1880 / 1880 240 / 240 Lab / Micro Data Result Diagrams: 10/14/21 05:20 10/14/21 05:20 Physical Exam Const alert, oriented x3 and no apparent distress HEENT head/scalp atraumatic and moist oral mucous membranes Eyes conjunctivae normal and no scleral icterus Neck full ROM and supple General: trachea midline Resp normal respiratory effort, normal air movement and clear to auscultation bilate rally Cardio regular rate, regular rhythm, S1 normal heart sound and S2 normal heart sound GI normal to inspection, nondistended, normoactive bowel sounds and soft to palpation Palpation: tender Extremity normal to inspection, full ROM and no clubbing, cyanosis or edema Skin no rashes or lesions noted, no wounds and skin turgor normal Neuro oriented x3, moves all extremities, no focal motor deficits and no sensory deficits noted Sensorium / Orientation: awake and alert Psych affect normal Assessment & Plan Assessment/Plan (1) Abscess of female pelvis: (2) Crohn's disease: (3) Enterovaginal fistula: PLAN: 1. Pelvic abscess -Patient continues to wait for a transfer bed at [facility]. Case discussed with patient's surgeon Dr. Radha Hill at [facility]. At the request of Dr. Hill will obtain a pelvic MRI and fax results to her office. -Continue Invanz -General surgery following 2. 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 Status post colectomy and subsequent ileostomy -Ostomy nurse following DVT prophylaxis-subcu Lovenox This patient was seen by FELIZ Zuñiga under the supervision of Dr. Mays. Documented by User: Dr. Katie Mays MD 10/15/21 16:56 Objective Data Lab / Micro Data Result Diagrams: 10/14/21 05:20 10/14/21 05:20 Charges/Coding Addendum Addendum: This patient was seen in conjunction with Johnna Mendoza. I have independently interviewed and examined the patient and reviewed pertinent historical, laboratory, and other data. I have reviewed her note and concur with her documentation Patient was seen and examined. Waiting on [facility] transfer line. Primary surgeons wanted MRI of the pelvis; ordered Physical Exam: Gen: Comfortable, not pale, not jaundiced CVS:HS I +II, regular, no murmurs RESP: Diminished at lung bases GI: BS present and normal, soft, nontender, no palpable organs EXT:No edema ASSESSMENT: 1. Pelvic abscess 2. Crohn's disease, status post colectomy, with ileostomy Plan: Continue antibiotics, Follow-up on MRI results Follow-up with transfer line Visit Charges Inpatient E&M: 32795 Subs Hosp L2
[2021-10-15 12:55] VITALS: BP 105/67; PULSE 106; RESP 18; TEMP 36.6; O2SAT 95
[2021-10-15 15:55] VITALS: BP 133/75; PULSE 105; RESP 16; TEMP 36.7; O2SAT 97
[2021-10-15 21:55] VITALS: BP 122/82; PULSE 104; RESP 16; TEMP 36.9; O2SAT 100
[2021-10-15] MEDS: Amitriptyline 25 MG Tablet 50 MG PO (22:34)
[2021-10-15] MEDS: MELATONIN 3 MG TABLET PO (22:52)
[2021-10-16 03:55] VITALS: BP 100/67; PULSE 93; RESP 18; TEMP 36.9; O2SAT 97
[2021-10-16 05:59] LABS: Absolute Lymphocyte Count 1.83 X10^3/uL (0.83-4.51); Basophil# 0.05 X10^3/uL; Basophil% 1.1 % (0-1); Eosinophil# 0.17 X10^3/uL; Eosinophils% 3.8 % (0-5); Hematocrit 41.9 % (37-47); Hemoglobin 14.2 g/dL (12.0-15.0); Lymphocyte # 1.83 X10^3/ul (0.83-4.51); Lymphocyte % 40.5 % (19-41); Mean Corp Hgb Conc 33.9 g/dL (32-36); Mean Corpuscular Hgb 30.7 pg (27.0-32.0); Mean Corpuscular Volume 90.5 fL (81-99); Mean Platelet Vol. 9.5 fl (6.2-12.0); Monocyte# 0.41 X10^3/uL; Monocyte% 9.1 % (0-10); NRBC Flagged by Analyzer 0 % (0-5); Neutrophil # 2.03 X10^3/uL (2.7-7.7); Neutrophil % 44.8 % (47-70); Platelet Count 244 K/mm3 (150-450); RBC Distribution Width CV 11.8 % (11.6-14.6); RBC Distribution Width SD 39.2 fl (35.1-43.9); Red Blood Count 4.63 M/mm3 (4.2-5.4); White Blood Count 4.5 K/mm3 (4.4-11.0)
[2021-10-16] MEDS: oxyCODONE 5 MG Tablet PO ×4 (06:23→21:53)
[2021-10-16 06:35] LABS: Anion Gap 6 (5-15); BUN 12 mg/dL (7-18); Calcium,Total 9.2 mg/dL (8.5-10.1); Chloride 108 mmol/L (98-107); EST Glomerular Filtration Rate 152 mL/min (>60); Est Glom Filt Rate - Afr Amer 183 mL/min (>60); Estimated Creatinine Clearance 151.22 ml/min; Glucose 95 mg/dL (74-106); Potassium 3.9 mmol/L (3.5-5.1); Sodium Level 139 mmol/L (136-145)
[2021-10-16] MEDS: Enoxaparin 40 MG/0.4 ML Syringe SC (09:06)
--- NOTE | 2021-10-16 09:06 | PN.HOSP_ITS ---
Documented by User: FELIZ Zuñiga 10/16/21 09:10 Subjective Subjective Patient seen and examined. Patient lying in bed no distress noted. Patient states. Informed patient that her MRI report has been faxed to Dr. Hill at [facility] per her request and when I hear back from her I would inform the patient. Objective Data Objective Data Vital Signs: Vital Signs Temp Pulse Resp BP Pulse Ox 98.5 F 93 18 100/67 97 10/16/21 03:55 10/16/21 03:55 10/16/21 03:55 10/16/21 03:55 10/16/21 03:55 Oxygen Delivery Method Room Air Weight: 157 lb 13.616 oz Body Mass Index (BMI) 26.1 Intake & Output: Intake and Output for Last 24 Hours 10/14/21 10/15/21 10/16/21 23:59 23:59 23:59 Intake Total 1880 / 1880 1210 / 1210 241.5 / 241.5 Balance 1880 / 1880 1210 / 1210 241.5 / 241.5 Lab / Micro Data Result Diagrams: 10/16/21 05:50 10/16/21 05:50 Labs: Laboratory Results - last 24 hr 10/16/21 05:50: WBC 4.5, RBC 4.63, Hgb 14.2, Hct 41.9, MCV 90.5, MCH 30.7, MCHC 33.9, RDW Std Deviation 39.2, RDW Coeff of Jaycee 11.8, Plt Count 244, MPV 9.5, Immature Gran % (Auto) 0.700, Neut % (Auto) 44.8 L, Lymph % (Auto) 40.5, [place] % (Auto) 9.1, Eos % (Auto) 3.8, Baso % (Auto) 1.1 H, Absolute Neuts (auto) 2.0, Absolute Lymphs (auto) 1.83, Nucleated RBC % 0 10/16/21 05:50: Sodium 139, Potassium 3.9, Chloride 108 H, Carbon Dioxide 25.0, Anion Gap 6, BUN 12, Creatinine 0.50 L, Estim Creat Clear Calc 151.22, Est GFR (MDRD) Af Amer 183, Est GFR (MDRD) Non-Af 152, BUN/Creatinine Ratio 24.0 H, Glucose 95, Calcium 9.2 Radiography Diagnostic Testing: Radiology Impression Abdomen/Pelvis CT 10/10/21 16:47 IMPRESSION: 6.4 cm likely tubo-ovarian abscess on the left. 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 Electronically Signed: Rishabh Bronson MD at 19:07 EST Tel , Service support , ADDENDUM: 10/15/21 1548 IMPRESSION: 6.4 cm likely tubo-ovarian abscess on the left. 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 Electronically Signed: Rishabh Bronson MD at 19:07 EST Tel , Service support , Pelvis MRI 10/15/21 10:30 IMPRESSION: Dilated tubular structure of the left hemipelvis measures 5.6 x 4.6 x 5.0 cm with layering fluid fluid level and peripheral/septal enhancement following IV contrast. Similar tubuloovarian abscess of the left adnexa. No additional fluid collection. Electronically Signed: Benji Bond MD (Brooks) at 8:22 EST , Service support , Physical Exam Const alert, oriented x3 and no apparent distress HEENT head/scalp atraumatic and moist oral mucous membranes Eyes conjunctivae normal and no scleral icterus Neck full ROM and supple General: trachea midline Resp normal respiratory effort, normal air movement and clear to auscultation bilaterally Cardio regular rate, regular rhythm, S1 normal heart sound and S2 normal heart sound GI normal to inspection, nondistended, normoactive bowel sounds and soft to palpati on Palpation: tender Extremity normal to inspection, full ROM and no clubbing, cyanosis or edema Skin no rashes or lesions noted, no wounds and skin turgor normal Neuro oriented x3, moves all extremities, no focal motor deficits and no sensory deficits noted Sensorium / Orientation: awake and alert Psych affect normal Assessment & Plan Assessment/Plan (1) Abscess of female pelvis: (2) Crohn's disease: (3) Enterovaginal fistula: PLAN: 1. Pelvic abscess -Patient continues to wait for a transfer bed at [facility]. Case discussed with patient's surgeon Dr. Radha Hill at [facility], report faxed to her office this a.m. -MRI shows a dilated tubular structure of the left hemipelvis measures 5.6 x 4.6 x 5.0 cm with layering fluid level and peripheral/septal enhancement following IV contrast. Similar tubuloovarian abscess of the left adnexa. No additional fluid collection. -Continue Invanz -General surgery following 2. 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 Status post colectomy and subsequent ileostomy -Ostomy nurse following DVT prophylaxis-subcu Lovenox This patient was seen by Rosa Jeronimo NP-C under the supervision of Dr. Sylvia emmanuel. Documented by User: Dr. Katie Mays MD 10/16/21 12:39 Objective Data Lab / Micro Data Result Diagrams: 10/16/21 05:50 10/16/21 05:50 Charges/Coding Addendum Addendum: This patient was seen in conjunction with Johnna Mendoza. I have independently interviewed and examined the patient and reviewed pertinent historical, laboratory, and other data. I have reviewed her note and concur with her documentation Patient was seen and examined. No new complaints. Waiting on [facility] transfer line. MRI of the pelvis shows dilated tubular structure of the left hemipelvis with 11 fluid level and peripheral/septa enhancement. Also tubo-ovarian abscess of the left adnexa. Physical Exam: Gen: Comfortable, not pale, not jaundiced CVS:HS I +II, regular, no murmurs RESP: Diminished at lung bases GI: BS present and normal, soft, nontender, no palpable organs EXT:No edema ASSESSMENT: 1. Pelvic abscess 2. Crohn's disease, status post colectomy, with ileostomy Plan: Continue antibiotics, Follow-up on MRI results Follow-up with transfer line Visit Charges Inpatient E&M: 01981 [facility] Hosp L2
[2021-10-16 09:15] VITALS: BP 116/73; PULSE 112; RESP 16; TEMP 36.6; O2SAT 98
--- NOTE | 2021-10-16 10:16 | WOUNDNOTE ---
Pt resting in bed awake. states she is still awaiting to hear about transfer to [facility]. has not received the MRI results yet. pt denies ostomy needs at this time. will monitor.
[2021-10-16 15:15] VITALS: BP 110/72; PULSE 97; RESP 16; TEMP 36.9; O2SAT 100
[2021-10-16 21:46] VITALS: BP 119/75; PULSE 99; RESP 16; TEMP 36.9; O2SAT 99
[2021-10-16] MEDS: Amitriptyline 25 MG Tablet 50 MG PO (21:48)
[2021-10-16] MEDS: MELATONIN 3 MG TABLET PO (21:53)
[2021-10-16] MEDS: Acetaminophen 325 MG Tablet 650 MG PO (21:53)
[2021-10-17 03:40] VITALS: BP 93/60; PULSE 97; RESP 16; TEMP 36.9; O2SAT 97
[2021-10-17 06:24] LABS: Absolute Lymphocyte Count 1.81 X10^3/uL (0.83-4.51); Absolute Neutrophil Count 1.9 X10^3/uL (2.0-7.7); Basophil# 0.06 X10^3/uL; Basophil% 1.4 % (0-1); Eosinophil# 0.15 X10^3/uL; Eosinophils% 3.5 % (0-5); Hematocrit 40.4 % (37-47); Hemoglobin 13.5 g/dL (12.0-15.0); Lymphocyte # 1.81 X10^3/ul (0.83-4.51); Mean Corp Hgb Conc 33.4 g/dL (32-36); Mean Corpuscular Hgb 30.4 pg (27.0-32.0); Mean Platelet Vol. 10.1 fl (6.2-12.0); Monocyte# 0.34 X10^3/uL; Monocyte% 7.9 % (0-10); NRBC Flagged by Analyzer 0 % (0-5); Neutrophil # 1.93 X10^3/uL (2.7-7.7); Neutrophil % 44.7 % (47-70); Platelet Count 244 K/mm3 (150-450); RBC Distribution Width CV 11.8 % (11.6-14.6); RBC Distribution Width SD 39.3 fl (35.1-43.9); Red Blood Count 4.44 M/mm3 (4.2-5.4); White Blood Count 4.3 K/mm3 (4.4-11.0)
[2021-10-17 06:51] LABS: Anion Gap 7 (5-15); BUN 13 mg/dL (7-18); BUN/Creat Ratio 23.7 RATIO (10-20); Calcium,Total 8.9 mg/dL (8.5-10.1); Chloride 108 mmol/L (98-107); Creatinine, Serum 0.55 mg/dL (0.55-1.02); EST Glomerular Filtration Rate 136 mL/min (>60); Est Glom Filt Rate - Afr Amer 165 mL/min (>60); Estimated Creatinine Clearance 137.47 ml/min; Glucose 93 mg/dL (74-106); Potassium 3.9 mmol/L (3.5-5.1); Sodium Level 138 mmol/L (136-145)
[2021-10-17] MEDS: oxyCODONE 5 MG Tablet PO (07:38)
[2021-10-17] MEDS: Acetaminophen 325 MG Tablet 650 MG PO (07:38)
[2021-10-17 09:12] VITALS: BP 110/64; PULSE 110; RESP 16; TEMP 36.6; O2SAT 95
[2021-10-17] MEDS: Enoxaparin 40 MG/0.4 ML Syringe SC (09:51)
--- NOTE | 2021-10-17 10:20 | PN.HOSP_ITS ---
Subjective Subjective Patient is a 32-year-old female lying in bed, alert and orient x3. Right ongoing abdominal/pelvic pain, although reports that this is controlled and has not gotten worse over the course of admission. Does not appear in acute distress. Objective Data Objective Data Vital Signs: Vital Signs Temp Pulse Resp BP Pulse Ox 98 F 110 H 16 110/64 95 10/17/21 09:12 10/17/21 09:12 10/17/21 09:12 10/17/21 09:12 10/17/21 09:12 Oxygen Delivery Method Room Air Weight: 158 lb 15.253 oz Body Mass Index (BMI) 26.1 Intake & Output: Intake and Output for Last 24 Hours 10/15/21 10/16/21 10/17/21 23:59 23:59 23:59 Intake Total 1210 / 1210 1761.5 / 1761.5 293.5 / 293.5 Balance 1210 / 1210 1761.5 / 1761.5 293.5 / 293.5 Lab / Micro Data Result Diagrams: 10/17/21 05:50 10/17/21 05:50 Labs: Laboratory Results - last 24 hr 10/17/21 05:50: WBC 4.3 L, RBC 4.44, Hgb 13.5, Hct 40.4, MCV 91.0, MCH 30.4, MCHC 33.4, RDW Std Deviation 39.3, RDW Coeff of Jaycee 11.8, Plt Count 244, MPV 10.1, Immature Gran % (Auto) 0.500, Neut % (Auto) 44.7 L, Lymph % (Auto) 42.0 H, [place] % (Auto) 7.9, Eos % (Auto) 3.5, Baso % (Auto) 1.4 H, Absolute Neuts (auto) 1.9 L, Absolute Lymphs (auto) 1.81, Nucleated RBC % 0 10/17/21 05:50: Sodium 138, Potassium 3.9, Chloride 108 H, Carbon Dioxide 23.0, Anion Gap 7, BUN 13, Creatinine 0.55, Estim Creat Clear Calc 137.47, Est GFR (MDRD) Af Amer 165, Est GFR (MDRD) Non-Af 136, BUN/Creatinine Ratio 23.7 H, Glucose 93, Calcium 8.9 Physical Exam Const alert, oriented x3 and no apparent distress HEENT head/scalp atraumatic and moist oral mucous membranes Head and Scalp: normocephalic Eyes PERRL, EOMs intact bilaterally and conjunctivae normal Neck no lymphadenopathy, supple and no JVD Resp normal respiratory effort, no retractions and no use of accessory muscles Cardio regular rhythm, no murmurs and no JVD Rate: tachycardic GI normal to inspection, nondistended, normoactive bowel sounds, soft to palpation and non-tender Extremity normal to inspection, full ROM and no clubbing, cyanosis or edema Skin no rashes or lesions noted Neuro CN's II-XII intact bilaterally Psych affect normal Assessment & Plan Assessment/Plan (1) Abnormal CT scan: (2) Abscess of female pelvis: (3) Crohn's disease: PLAN: Day 5 Discharge planning: Currently awaiting for patient to transfer to [facility]. 1) pelvic abscess Awaiting transfer as above, patient surgeon is Dr. Radha Hill at [facility], who has agreed to take patient. Updated MRI demonstrates dilated tubular structure of the left hemipelvis measures 5.6 x 4.6 x 5.0 cm with layering fluid level and peripheral/septal enhancement following IV contrast. Similar tubuloovarian abscess of the left adnexa. Continue Invanz. 2) Crohn's disease Patient receives monthly vedolizumab through chest port. 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 Mays.
[2021-10-17] MEDS: 0.9% Saline Lock 10 ML Syringe IV (13:26)
[2021-10-17] MEDS: HYDROmorphone 1 MG/ML Syringe IV (13:27)
[2021-10-17 13:42] VITALS: BP 108/68; PULSE 96; RESP 16; TEMP 36.5; O2SAT 100
--- NOTE | 2021-10-17 15:21 | PCM.DC ---
Discharge Instructions Diet Discharge Diet: No restrictions Activity Discharge Activity: Return to Normal Activity Weight Bearing Status: Weight bearing as tolerated Dressing / Incision Call your doctor if you observe: Fever of 101 or Higher, Shortness of breath, Fainting spells and Chest pain Follow Up Care Please Follow Up With: Primary care provider When: Within the next two weeks. Test Results: Test results from this visit will be discussed in further detail at your follow-up appointment, if applicable. Discharge Plan Admission Admit Date/Time: 10/11/21 10:20 Attending Provider: Katie Mays Primary Care Provider: Ruben Burciaga Consulting Providers: Donya Calderon ; Esperanza Celestin Discharge Orders/Prescriptions Prescriptions: New ciprofloxacin HCl [Cipro] 500 mg tablet 500 mg PO BID Qty: 20 RF: 0 metronidazole 500 mg tablet 500 mg PO Q8H Qty: 30 RF: 0 hydromorphone [Dilaudid] 2 mg tablet 2 mg PO Q6H 5 Days Qty: 20 RF: 0 ondansetron HCl [Zofran] 4 mg tablet 4 mg PO Q8H Qty: 7 RF: 0 Continued amitriptyline 25 MG tablet 50 mg PO QHS RF: 0 vedolizumab 300 MG recon soln 300 mg IV QMONTH RF: 0 Referrals / Follow Up: Ruben Burciaga MD [Primary Care Provider] - In 1 Week Disposition Disposition (needs filled in before D/C Order can be placed): Home, Self Care
--- NOTE | 2021-10-17 15:24 | PCM.DC.SUM ---
Documented by User: Frank VALENZUELA 10/17/21 15:27 Providers Date of Admission: 10/11/21 Primary Care Physician: Dr. Ruben Burciaga MD Consultations 10/11/21 10:21 Consult: Onc/Wound/inlayer Routine Comment: 10/11/21 10:24 Consult: General Surgery Routine Consulting Provider: Donya Calderon Reason for Consult: Pelvic abscess EMERGENT Consult: No MD Notified: Yes Date Notified: 10/11/21 Time Notified: 10:25 Method of Notification: Verbal Consult: [employer] Routine Consulting Provider: Esperanza Celestin Reason for Consult: pelvic surgery EMERGENT Consult: No MD Notified: Yes Date Notified: 10/11/21 Time Notified: 10:28 Method of Notification: Verbal/ Reason For Visit: PELVIC ABSCESS Diagnosis Discharge Diagnosis (1) Abnormal CT scan: Status: Acute Code(s): R93.89 - Abnormal findings on diagnostic imaging of other specified body structures (2) Abscess of female pelvis: Status: Acute Code(s): N73.9 - Female pelvic inflammatory disease, unspecified (3) Crohn's disease: Status: Acute Code(s): K50.90 - Crohn's disease, unspecified, without complications Medications at Discharge Home Medications amitriptyline 50 mg PO QHS 10/05/19 vedolizumab 300 mg IV QMONTH 10/05/19 ciprofloxacin HCl [Cipro] 500 mg PO BID #20 tab 10/13/21 hydromorphone [Dilaudid] 2 mg PO Q6H 5 Days #20 tab 10/13/21 metronidazole 500 mg PO Q8H #30 tab 10/13/21 ondansetron HCl [Zofran] 4 mg PO Q8H #7 tab 10/13/21 naloxone 4 mg INTRANASAL Q3M PRN #2 ea 10/17/21 Hospital Course Summary of Care Provided Minutes Spent on Discharge: 35 Hospital Course: Discharge planning: Currently awaiting for patient to transfer to [facility]. 1) pelvic abscess Updated MRI demonstrates dilated tubular structure of the left hemipelvis measures 5.6 x 4.6 x 5.0 cm with layering fluid level and peripheral/septal enhancement following IV contrast. Similar tubuloovarian abscess of the left adnexa. Patient surgeon is Dr. Radha Hill at [facility]. Patient is to discharge and report directly to [facility] as awaiting transfer has taken too long. Continue ciprofloxacin and Flagyl from last admission. 2) Crohn's disease Patient receives monthly vedolizumab through chest port. 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 Mays. Physical Exam Const alert, oriented x3 and no apparent distress HEENT normocephalic, head/scalp atraumatic and hearing grossly normal bilaterally Eyes PERRL, EOMs intact bilaterally and conjunctivae normal Neck no lymphadenopathy, supple and no JVD Resp normal respiratory effort, no retractions, no use of accessory muscles and clear to auscultation bilaterally Cardio regular rate, regular rhythm, no murmurs and no JVD GI normal to inspection, nondistended, normoactive bowel sounds, soft to palpation and non-tender Extremity normal to inspection, full ROM and no clubbing, cyanosis or edema Skin no rashes or lesions noted, no wounds and skin turgor normal Neuro CN's II-XII intact bilaterally Psych affect normal Weight / BMI Weight Weight: 158 lb 15.253 oz Body Mass Index (BMI) 26.1 ABG / Lab / Microbiology Data Result Diagrams: 10/17/21 05:50 10/17/21 05:50 Laboratory: Laboratory Results - last 24 hr 10/17/21 05:50: WBC 4.3 L, RBC 4.44, Hgb 13.5, Hct 40.4, MCV 91.0, MCH 30.4, MCHC 33.4, RDW Std Deviation 39.3, RDW Coeff of Jaycee 11.8, Plt Count 244, MPV 10.1, Immature Gran % (Auto) 0.500, Neut % (Auto) 44.7 L, Lymph % (Auto) 42.0 H, [place] % (Auto) 7.9, Eos % (Auto) 3.5, Baso % (Auto) 1.4 H, Absolute Neuts (auto) 1.9 L, Absolute Lymphs (auto) 1.81, Nucleated RBC % 0 10/17/21 05:50: Sodium 138, Potassium 3.9, Chloride 108 H, Carbon Dioxide 23.0, Anion Gap 7, BUN 13, Creatinine 0.55, Estim Creat Clear Calc 137.47, Est GFR (MDRD) Af Amer 165, Est GFR (MDRD) Non-Af 136, BUN/Creatinine Ratio 23.7 H, Glucose 93, Calcium 8.9 D/C Instructions Discharge Diet: No restrictions Weight Bearing Status: Weight bearing as tolerated Call your doctor if you observe: Fever of 101 or Higher, Shortness of breath, Fainting spells and Chest pain Please Follow Up With: Primary care provider When: Within the next two weeks. Meaningful Use Info Meaningful Use Diagnoses (Choose all that apply): None applicable Discharge Plan Admission Admit Date/Time: 10/11/21 10:20 Attending Provider: Katie Mays Primary Care Provider: Ruben Burciaga Consulting Providers: Donya Calderon ; Esperanza Celestin Discharge Orders/Prescriptions Prescriptions: New ciprofloxacin HCl [Cipro] 500 mg tablet 500 mg PO BID Qty: 20 RF: 0 metronidazole 500 mg tablet 500 mg PO Q8H Qty: 30 RF: 0 hydromorphone [Dilaudid] 2 mg tablet 2 mg PO Q6H 5 Days Qty: 20 RF: 0 ondansetron HCl [Zofran] 4 mg tablet 4 mg PO Q8H Qty: 7 RF: 0 naloxone 4 mg/actuation spray,non-aerosol 4 mg intranasal Q3M PRN (Reason: opioid overdose) Qty: 2 RF: 0 Continued amitriptyline 25 MG tablet 50 mg PO QHS RF: 0 vedolizumab 300 MG recon soln 300 mg IV QMONTH RF: 0 Referrals / Follow Up: Ruben Burciaga MD [Primary Care Provider] - In 1 Week Disposition Disposition (needs filled in before D/C Order can be placed): Home, Self Care Documented by User: Dr. Katie Mays MD 10/17/21 15:53 Providers Date of Admission: 10/11/21 Reason For Visit: PELVIC ABSCESS Medications at Discharge Home Medications amitriptyline 50 mg PO QHS 10/05/19 vedolizumab 300 mg IV QMONTH 10/05/19 ciprofloxacin HCl [Cipro] 500 mg PO BID #20 tab 10/13/21 hydromorphone [Dilaudid] 2 mg PO Q6H 5 Days #20 tab 10/13/21 metronidazole 500 mg PO Q8H #30 tab 10/13/21 ondansetron HCl [Zofran] 4 mg PO Q8H #7 tab 10/13/21 naloxone 4 mg INTRANASAL Q3M PRN #2 ea 10/17/21 ABG / Lab / Microbiology Data Result Diagrams: 10/17/21 05:50 10/17/21 05:50 Discharge Plan Admission Admit Date/Time: 10/11/21 10:20 Attending Provider: Katie Mays Primary Care Provider: Ruben Burciaga Consulting Providers: Donya Calderon ; Esperanza Celestin Discharge Orders/Prescriptions Prescriptions: New ciprofloxacin HCl [Cipro] 500 mg tablet 500 mg PO BID Qty: 20 RF: 0 metronidazole 500 mg tablet 500 mg PO Q8H Qty: 30 RF: 0 hydromorphone [Dilaudid] 2 mg tablet 2 mg PO Q6H 5 Days Qty: 20 RF: 0 ondansetron HCl [Zofran] 4 mg tablet 4 mg PO Q8H Qty: 7 RF: 0 naloxone 4 mg/actuation spray,non-aerosol 4 mg intranasal Q3M PRN (Reason: opioid overdose) Qty: 2 RF: 0 Continued amitriptyline 25 MG tablet 50 mg PO QHS RF: 0 vedolizumab 300 MG recon soln 300 mg IV QMONTH RF: 0 Referrals / Follow Up: Ruben Burciaga MD [Primary Care Provider] - In 1 Week Disposition Disposition (needs filled in before D/C Order can be placed): Home, Self Care Charges/Coding Addendum Addendum: This patient was seen in conjunction with NICOLAS Green. I have independently interviewed and examined the patient and reviewed pertinent historical, laboratory, and other data. Please refer to NICOLAS Green's note for his patient's presentation, findings, and recommendations. 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 Patient follows with the [facility]. She presented in the ED and CT of abdomen pelvis showed a 7.4 cm likely tubo-ovarian abscess on the left. Gynecology was consulted and felt that the findings with no consider waited to do ovarian abscess. General surgery was consulted and recommended transfer to [facility]. Patient was also started on IV antibiotics?meropenem. Patient was in the hospital for several days awaiting transfer to [facility]. Her colorectal surgeon recommended MRI of the pelvis to see if that would help bring hair in faster. An MRI of the pelvis showed dilated tubular structure of the left hemipelvis base measuring 5.6 x4.6 x 5.0 with layering fluid levels and peripheral/septal enhancement following IV contrast. Patient will need to follow-up with the [facility]. This was recommended to her. She had Cipro and Flagyl originally prescribed for her. Patient was seen and examined on the day of discharge. She had severe pain in her pelvic region. She was given some IV pain medication. Physical Exam: Gen: Looks in some discomfort, not pale, not jaundiced CVS:HS I +II, regular, no murmurs RESP: Diminished at lung bases GI: BS present and normal, soft, nontender, no palpable organs EXT:No edema Visit Charges Inpatient E&M: 20518 Disch Hosp
--- NOTE | 2021-10-17 16:52 | NURSING ---
pt requesting that port not be removed because she is driving straight to main campus for admit.
== END 2021-10-17 17:34 | disposition home or self-care (01) | DRG 758 ==
LOC: ED 21:41 → PCU 10-11 10:44
PROVIDERS: Nurse Practitioner Family; Admitting Provider Internal Medicine; Emergency Provider Emergency Medicine; PCP Internal Medicine; Visit Provider Internal Medicine
DX: N70.93 Salpingitis and oophoritis, unspecified (principal); K50.10 Crohn's disease of large intestine without complications; N82.3 Fistula of vagina to large intestine; Z93.3 Colostomy status; Z90.49 Acquired absence of other specified parts of digestive tract; Z79.899 Other long term (current) drug therapy
CPT/HCPCS: 36415; 72197; 74177; 80048; 80053; 81001; 83690; 83735; 84100; 85025; 97802; 97803; 99285; A9575; J2185; J7030; J7040; J7050; Q9967; A4216; J2405

== ENCOUNTER 2024-06-13 08:44 | Emergency (ER) | payer OTHER, SELFPAY ==
[2024-06-13 08:45] VITALS: BP 147/92; PULSE 130; RESP 20; TEMP 36; O2SAT 97
--- NOTE | 2024-06-13 09:01 | RAD_ITS ---
STUDY: X-RAY - LEFT FOOT CLINICAL: Female, 34 years old. Pain and swelling following a fall. TECHNIQUE: 3 view(s) of the foot. COMPARISON: None. FINDINGS: Normal talus, calcaneus, and tarsal bones. Normal visualized subtalar, talonavicular, calcaneocuboid, tarsal and tarsometatarsal articulations. Normal metatarsi. Normal metatarsophalangeal joint of the great toe. Normal tibial and fibular sesamoid bones. Normal interphalangeal joint of the great toe. Normal phalanges of the great toe. Normal second through fifth metatarsophalangeal joints. Normal interphalangeal joints and phalanges of the lesser toes. Soft tissue swelling. RAD/Foot min 3 Views IMPRESSION: Soft tissue swelling. Electronically Signed: Nazario Calix MD at 9:43 EDT ,
--- NOTE | 2024-06-13 09:03 | ED.VIS.LOWEX ---
HPI History of Present Illness HPI Narrative: 34-year-old female history of Crohn's and von Willebrand's. Was walking in her kitchen this morning there is a step and she tripped fell injuring both feet. Denies any LOC or head injury. Denies any neck or back pain. Denies any chest or abdominal pain. Prior to the fall she was feeling fine. Chief Complaint: Lower Extremity Injury Informant: patient Occured/Mechanism Mechanism/Context: Yes injury and Yes blunt trauma Onset/Context/Timing Onset: Today and Hours Context: Sudden Onset Timing: Continuous Quality of Pain: Dull and Aching Current Severity: Mild Maximum Severity: Mild Associated Symptoms Associated Symptoms: Negative for Parasthesia, Weakness or Loss of Funtion Narrative Narrative: 34-year-old female fell complaining of bilateral foot pain. Prior similar symptoms: No Recent Illness/Hospitalization: No PFSH PFSH Medical History Abnormal CT scan Von Willebrand disease, type I Fistula Crohn's disease Home Medications ?Medication ?Instructions ?Recorded ?Last Taken ?Type vedolizumab 300 mg intravenous 300 mg IV QMONTH 10/05/19 Unknown History solution ondansetron HCl 4 mg tablet 4 mg PO Q8H #7 tabs 10/13/21 Unknown Rx (Zofran) amitriptyline 100 mg tablet 100 mg PO DAILY 06/13/24 Unknown History Allergy/AdvReac Type Severity Reaction Status Date / Time banana Allergy Anaphylaxis Verified 06/13/24 08:51 bee venom protein (honey bee) Allergy Anaphylaxis Verified 06/13/24 08:51 fentanyl Allergy Anaphylaxis Verified 06/13/24 08:51 infliximab (From Remicade) Allergy Anaphylaxis Verified 06/13/24 08:51 morphine Allergy Anaphylaxis Verified 06/13/24 08:51 latex AdvReac Rash Verified 06/13/24 08:51 Family History Mother No problems noted. Surgical History History of cholecystectomy History of total colectomy History of ileostomy Social History Smoking Status: Never smoker ROS ROS ED ROS Narrative Denies recent illness Constitutional Constitutional ED: Denies fever(s) Eyes Eyes: Denies blurry vision ENT ENT ED: Denies ear pain Cardiovascular Cardiovascular: Denies chest pain Respiratory/Chest Respiratory/Chest: Denies cough Gastrointestinal Gastrointestinal: Denies abdominal pain Genitourinary Genitourinary ED: Denies dysuria Musculoskeletal Musculoskeletal: Denies arthralgias Integumentary Denies abscess Neurologic Neurologic: Denies headache(s) Psychiatric Psychiatric: Denies anxiety Endocrine Endocrinology: Denies polydipsia Hematologic/Lymphatic Hematologic/Lymphatic: Denies lymphadenopathy Allergic/Immunologic Allergic/Immunologic ED: Denies mouth swelling EXAM Physical Exam Narrative Exam Narrative: Well-appearing distally. Vital signs are stable and afebrile. Family at bedside. H EENT exam unremarkable. Atraumatic. Pupils are round and reactive light. No trauma to her face or scalp. Neck nontender. No lymphadenopathy. Back nontender. Lungs clear. Heart regular rhythm. Rate about 115 no murmur. Chest wall and ribs nontender. Abdomen soft nontender. Pelvic girdle intact. Moving all 4 extremities. Neurovascular intact. No deformity. Tenderness both feet with mild swelling to the distal metatarsals. Achilles tendons are intact. Able to wiggle her toes. She is awake and alert. No focal motor deficits. Const Vital Signs: 06/13/24 08:45 Temperature 96.8 F L Temperature Source Temporal Pulse Rate 130 H Respiratory Rate 20 H Blood Pressure 147/92 H Blood Pressure Mean 110 Pulse Ox 97 Oxygen Delivery Method Room Air Positive well nourished and well developed General Appearance ED: well developed and NAD HEENT Reports moist mucous membranes normocephalic and atraumatic; Negative for trauma or tenderness Eyes PERRL Neck full ROM and supple Thyroid: Negative for tender Lymph Lymphatic: Negative for other Chest Wall inspection of chest normal and palpation of chest normal Chest: Negative for other Resp normal respiratory effort, no retractions and clear to auscultation bilaterally Effort and Inspection: Negative for pain with movement Auscultation: Negative for rales or rhonchi Cardio regular rhythm, S1 normal heart sound, S2 normal heart sound and no murmurs; Negative for regular rate Rate: tachycardic; Negative for bradycardia GI non-tender, non-distended and no masses Inspection: Negative for abdominal distention Auscultation: normoactive bowel sounds Palpation: soft; Negative for tender, guarding or rebound tenderness present Back/Spine no CVA tenderness General Back: Negative for CVA tenderness Cervical Spine: Negative for cervical spine tenderness Thoracic Spine / Upper Back: Negative for thoracic spinal tenderness Lumbar Spine / Lower Back: Negative for lumbar spinal tenderness Extremity full ROM; Negative for normal to inspection Extremity Narrative: Tenderness both feet. Mild swelling of the distal metatarsals. No deformity. Normal DP pulses. Skin intact. General Extremety ED: Yes weight-bearing difficulty; Negative for cyanosis General Extremity: weight-bearing difficulty; Negative for cyanosis Neuro oriented x3 and CN's II-XII intact bilaterally Sensorium / Orientation: alert, oriented to person, oriented to place and oriented to time; Negative for orientation impaired or confused Motor Exam: strength 5/5 throughout; Negative for general weakness or strength abnormal Psych mental status grossly normal Speech: No other Mood & Affect: Negative for anxious Skin no wounds Lesions: no lesions Rashes: no rashes Trauma: Negative for abrasion, laceration or puncture MDM MDM MDM Narrative Medical decision making narrative: 34-year-old female fell going down 1-2 steps leaving her kitchen. X-rays of both feet to be obtained. She requested some pain she will be given 1 [place]. Repeat exam at 11:25 AM patient doing well. We went over x-ray results which are negative. She will be discharged home. History & Record Review Discussion w/independent historian: Patient and Family Additional record(s) reviewed:: Prior inpatient record, Prior outpatient record and Prior ED visit Radiography Diagnostic Testing: Clinical Impression(s) from Imaging Studies Foot X-Ray 06/13/24 09:01 IMPRESSION: Soft tissue swelling. Electronically Signed: Nazario Calix MD at 9:43 EDT , Foot X-Ray 06/13/24 09:10 IMPRESSION: Normal x-ray examination of the foot. Electronically Signed: Nazario Calix MD at 9:44 EDT , Right foot x-ray, 3 views, interpreted by myself shows no acute fracture or dislocation. 3 views. Left foot x-ray, 3 views, interpreted by myself shows no acute abnormality. No fracture or dislocation. Discharge Plan Triage Chief Complaint: Lower Extremity Injury ED Provider: Poli Taylor Dx/Rx/DC Orders Clinical Impression: Fall, Contusion of foot Instructions: ED Foot Contusion Prescriptions: No Action vedolizumab 300 MG recon soln 300 mg IV QMONTH ondansetron HCl [Zofran] 4 mg tablet 4 mg PO Q8H Qty: 7 0RF amitriptyline 100 mg tablet 100 mg PO DAILY Patient Comments: TAKE 1 TABLET BY MOUTH EVERYDAY AT BEDTIME Primary Care Provider: Ruben Burciaga Referrals: Ruben Burciaga MD [Primary Care Provider] - 10-14 Days if not better Activity Restrictions/Additional Instructions: Both feet x-rays look good. Nothing broken. Ice and elevate. Rest. Alternate Motrin for pain and swelling and Tylenol for pain. If not improving follow-up with your doctor in 1 to 2 weeks to have it reevaluated. Print Language: Wallisian Disposition Disposition: Home, Self Care
[2024-06-13] MEDS: HYDROcodone Bitartrate/Apap 5/325 Tablet PO (09:10)
--- NOTE | 2024-06-13 09:10 | RAD_ITS ---
STUDY: X-RAY - RIGHT FOOT CLINICAL: Female, 34 years old. Pain and swelling following a fall. TECHNIQUE: 3 view(s) of the foot. COMPARISON: None. FINDINGS: Normal talus, calcaneus, and tarsal bones. Normal visualized subtalar, talonavicular, calcaneocuboid, tarsal and tarsometatarsal articulations. Normal metatarsi. Normal metatarsophalangeal joint of the great toe. Normal tibial and fibular sesamoid bones. Normal interphalangeal joint of the great toe. Normal phalanges of the great toe. Normal second through fifth metatarsophalangeal joints. Normal interphalangeal joints and phalanges of the lesser toes. The soft tissue structures are unremarkable. RAD/Foot min 3 Views IMPRESSION: Normal x-ray examination of the foot. Electronically Signed: Nazario Calix MD at 9:44 EDT ,
--- NOTE | 2024-06-13 11:39 | ED.RN ---
PATIENTS FAMILY MEMBER STANDING AT THE DOOR. THIS RN ASKED IF SHE COULD HELP WITH ANYTHING? FAMILY MEMBER STATES WE HAVE BEEN WAITING 3 HOURS. HOW LONG WILL IT BE BEFORE SOMEONE IS IN? NO ONE HAS COME IN ASKING HOW HER PAIN IS DOING SINCE WE HAVE BEEN HERE. RN CHECK TRACKER AND NOTICED EVERYTHING HAD BEEN BACK AND THE PATIENT IS UP FOR RE-EVAL. DURING THIS TIME, PATIENT HAD A DISCHARGE ORDER PUT IN BY DR. BOURNE WHO WAS WALKING TO PATIENTS ROOM. PATIENT GIVEN DISCHARGE PAPERWORK AND UPDATED HER ON INSTRUCTIONS. FAMILY MEMBER UPSET AND YELLS YOURE NOT EVEN GONNA HELP HER LEAVE? SHE CAN'T WALK! RN STATES I CAN GET HER A WHEELCHAIR. WHEN LEAVING PATIENTS ROOM, RN ASKED PATIENT IF SHE HAS A SHOE OR SOCK SHE WOULD LIKE ME TO PUT ON? PATIENT STATE NO! I CAN'T EVEN FIT IT OVER MY FOOT. I CAN'T BELIEVE YOURE NOT GOING TO EVEN WRAP IT. RN STATES THE DOCTOR DID NOT ORDER ANYTHING. WHEN HELPING PATIENT TO THE CAR, PATIENT STATES THIS IS RIDICULOUS. I CAN'T EVEN WALK PATIENT PLACED SAFELY INTO CAR WITH HELP OF FAMILY MEMBER.
== END 2024-06-13 11:40 | disposition home or self-care (01) ==
PROVIDERS: Emergency Provider Emergency Medicine; PCP Internal Medicine; Visit Provider Emergency Medicine
DX: S90.31XA Contusion of right foot, initial encounter (principal); K50.90 Crohn's disease, unspecified, without complications; D68.01 Von Willebrand disease, type 1; S90.32XA Contusion of left foot, initial encounter; W10.9XXA Fall (on) (from) unspecified stairs and steps, initial encounter; Y92.000 Kitchen of unspecified non-institutional (private) residence as the place of occurrence of the external cause; Z79.899 Other long term (current) drug therapy
CPT/HCPCS: 73630; 99282